=== PATIENT | female | born 1945 | race Caucasian/White ===

== ENCOUNTER → 2016-04-09 | Outpatient (CLI) | payer MEDICARE ==
[~2016-04-09] MED LIST: ALEN70TA2 PO; CALC-416 PO; CEPH500C2 PO; DPH/ PO; EZET10TA38 PO; PRLSRP PO; SITA50TA9 PO; SYN100 PO; VTMD1000 PO
[2016-04-09 09:56] LABS: ALB/GLOB RATIO 1.1 (0.9-2); ALT/SGPT 24 U/L (12-78); AST/SGOT 13 U/L (15-37); BLOOD UREA NITROGEN 14 mg/dl (7-18); BUN/CREATININE RATIO 17.3 (10-20); CALCIUM 9.6 mg/dl (8.5-10.1); CARBON DIOXIDE 29 mmol/L (21-32); CHLORIDE 103 mmol/L (98-107); CHOLESTEROL 158 mg/dl (0-200); CREATININE 0.83 mg/dl (0.60-1.20); GLUCOSE 115 mg/dl (70-99); POTASSIUM 4.3 mmol/L (3.5-5.1); SODIUM 142 mmol/L (136-145); TRIGLYCERIDES 157 mg/dl (0-150); VERY LOW DENSITY LIPOPROT CALC 31 mg/dl
[2016-04-09 09:58] LABS: ALKALINE PHOSPHATASE 83 U/L (45-117); CHOLESTEROL/HDL RATIO 2.7; HDL CHOLESTEROL 59 mg/dl; LDL CHOLESTEROL CALCULATED 68 mg/dl
[2016-04-09 10:20] LABS: ESTIMATED AVERAGE GLUCOSE 143 mg/dl; HA1C FLAG Normal (Normal)
== END | disposition home or self-care (01) ==
LOC: C.LAB1850 08:24
PROVIDERS: ATTEND Family Medicine
DX: M81.0 Age-related osteoporosis without current pathological fracture (principal); E11.9 Type 2 diabetes mellitus without complications; I10 Essential (primary) hypertension; E78.5 Hyperlipidemia, unspecified; E03.9 Hypothyroidism, unspecified

== ENCOUNTER → 2016-10-18 | Outpatient (CLI) | payer MEDICARE ==
--- NOTE | 2016-10-18 12:05 | DIAGNOSTIC IMAGING REPORT ---
ABDOMEN 2VIEW W/PA CHEST RTN CLINICAL HISTORY: 71 years-old Female presenting with diffuse abdominal pain. TECHNIQUE: PA view of the chest and supine and upright views of the abdomen were obtained. COMPARISON: None. FINDINGS: Cardiomediastinal silhouette normal. Elevation of the right hemidiaphragm. Lungs and pleural spaces clear. No calcifications project over the kidneys or along the courses of the ureters. Possibility of bowel gas, nonspecific gas noted in the rectum.. No evidence of free intraperitoneal gas, pneumatosis, or portal venous gas. Osseous structures normal. IMPRESSION: 1. No acute cardiopulmonary disease. 2. Possibly of bowel gas, nonspecific. No pneumoperitoneum. Electronically signed by: Simone Vu M.D. 10/18/2016 12:04 PM Dictated Date/Time: 10/18/2016 12:02 PM
[2016-10-18 12:34] LABS: BASO % 0.3 %; BASO ABS # 0.02 K/uL (0-0.2); COMPLETE YES; EOS % 0.4 %; HEMATOCRIT 43.3 % (37-47); IG% 0.3 %; LYMPH % 18.6 %; LYMPH ABS # 1.34 K/uL (1.2-3.4); MEAN CELL VOLUME 88.2 fL (80-100); MEAN CORPUSCULAR HEMOGLOBIN 28.7 pg (25-34); MEAN CORPUSCULAR HGB CONC 32.6 g/dl (32-36); MEAN PLATELET VOLUME 9.7 fL (7.4-10.4); MONO % 14.3 %; NEUT % 66.1 %; PLATELET COUNT 334 K/uL (130-400); RED BLOOD COUNT 4.91 M/uL (4.2-5.4); WHITE BLOOD COUNT 7.19 K/uL (4.8-10.8)
[2016-10-18 12:39] LABS: ESTIMATED AVERAGE GLUCOSE 146 mg/dl; HA1C FLAG Normal (Normal)
[2016-10-18 13:01] LABS: AST/SGOT 18 U/L (15-37); BLOOD UREA NITROGEN 11 mg/dl (7-18); BUN/CREATININE RATIO 14.4 (10-20); CALCIUM 9.7 mg/dl (8.5-10.1); CARBON DIOXIDE 25 mmol/L (21-32); CHLORIDE 101 mmol/L (98-107); CREATININE 0.77 mg/dl (0.60-1.20); GLUCOSE 97 mg/dl (70-99); POTASSIUM 3.4 mmol/L (3.5-5.1); SODIUM 135 mmol/L (136-145)
[2016-10-18 13:12] LABS: ALB/GLOB RATIO 0.8 (0.9-2); ALKALINE PHOSPHATASE 92 U/L (45-117); ALT/SGPT 26 U/L (12-78); C-REACTIVE PROTEIN 2.41 mg/dl (0-0.29)
[2016-10-18 14:39] LABS: URINE APPEARANCE CLEAR (CLEAR); URINE BILIRUBIN NEG (NEG); URINE COLOR YELLOW; URINE EPITHELIAL CELL AUTO >30 /lpf (0-5); URINE NITRITE NEG (NEG); URINE SPECIFIC GRAVITY 1.013 (1.000-1.030); UROBILINOGEN NEG (NEG); ZZUR CULT IF INDIC CLEAN CATCH YES
[2016-10-18 14:41] LABS: MANUAL MICROSCOPIC REQUIRED? NO; REVIEW REQ? YES
== END | disposition home or self-care (01) ==
LOC: C.RAD1850 11:11
PROVIDERS: ATTEND Nurse Practitioner Adult Health
DX: R10.84 Generalized abdominal pain (principal); R19.7 Diarrhea, unspecified; E03.9 Hypothyroidism, unspecified; E11.9 Type 2 diabetes mellitus without complications

== ENCOUNTER 2016-10-19 11:50 | Emergency (ER) | payer MEDICARE ==
[~2016-10-19] VITALS: Ht 165.1 cm; Wt 73.2 kg
[2016-10-19 12:14] VITALS: TEMP 36.4; Ht 165.1 cm; Wt 73.2 kg
[2016-10-19] MEDS ORDERED: ONDANSETRON INJ 2 MG/ML 2 ML VIAL IV STA (12:26)
[2016-10-19] MEDS ORDERED: SODIUM CHLORIDE 0.9% 1000ML 1,000 ML IV STA (12:26)
--- NOTE | 2016-10-19 12:30 | EMERGENCY ROOM VISIT NOTE ---
History Report prepared by Linda: Claire Mann Under the Supervision of: Dr. Sesar Combs D.O. First contact with patient: 12:18 Chief Complaint: ABDOMINAL PAIN Stated Complaint: STOMACH PAIN - DIARRHEA - DAY 6 Nursing Triage Summary: pt reports diarrhea for 6 days and abd cramping was given zofran yetserday at pcp office also reports having fevers during this time History of Present Illness The patient is a 71 year old female who presents to the Emergency Room with complaints of persistent abdominal pain for the past 6 days. She rates her discomfort as a 9/10 and describes the pain as feeling like "cramping". For the past 3 days, the patient has also experienced diarrhea. She denies any melena or hematochezia. She denies any recent travel or sick contacts. She admits to nausea but has not vomited. She has experienced the chills and diaphoresis but is not sure if she's been running a fever. Yesterday the patient saw TYRESE Javier, and was given Zofran, and told to come to the ED if her symptoms worsened. She was able to produce a stool sample and turned it into the [facility] lab earlier this morning. The patient has never experienced these types of symptoms before. She has never undergone a colonoscopy. She denies any recent medication changes. Source of History: patient Onset: 6 days COUNTER WEIGHER Position: abdomen Symptom Intensity: 9/10 Quality: cramping Timing: other (persistent) Associated Symptoms: + chills, + diaphoresis, + nausea, + diarrhea, No fevers, No vomiting, No melena, No hematochezia Review of Systems See HPI for pertinent positives & negatives. A total of 10 systems reviewed and were otherwise negative. Past Medical & Surgical Medical Problems: (1) Diabetes mellitus (2) Hyperlipidemia (3) Hypertension Surgical Problems: (1) History of hysterectomy Social History Smoking Status: Never Smoker Alcohol Use: none Drug Use: none Marital Status: Housing Status: lives with family Occupation Status: retired Current/Historical Medications Scheduled Alendronate Sodium (Fosamax), 70 MG PO WK Calcium Carbonate-Vitamin D (Calcium 600+D3), 2 TABS PO DAILY Cephalexin Monohydrate (Keflex), 500 MG PO QID Cholecalciferol (Vitamin D3), 3,000 UNITS PO DAILY Diphenoxylate W/ Atropine (Lomotil), 2 TAB PO QID Ezetimibe/Simvastatin (Vytorin 10MG/20MG), 1 TAB PO DAILY Levothyroxine Sodium (Synthroid), 100 MCG PO DAILY Omeprazole (Prilosec), 10 MG PO DAILY Sitagliptin-Metformin Hcl (Janumet), 1 TAB PO BID Allergies Coded Allergies: No Known Allergies (Unverified , 10/19/16) Physical Exam Vital Signs Date Time Temp Pulse Resp B/P (MAP) Pulse Ox O2 Delivery O2 Flow Rate FiO2 10/19/16 16:55 75 20 133/65 98 10/19/16 15:20 72 20 138/74 97 Room Air 10/19/16 13:38 75 18 125/56 10/19/16 12:44 88 10/19/16 12:14 36.4 93 18 121/76 99 Room Air Physical Exam GENERAL: Patient is awake, alert, in no acute distress, patient is resting comfortably and showing no signs of anxiety EYES: The conjunctivae are clear. The pupils are round and reactive. EARS, NOSE, MOUTH AND THROAT: The nose is without any evidence of any deformity. Mucous membranes are moist tongue is midline NECK: The neck is nontender and supple. RESPIRATORY: Normal respiratory effort is noted there is no evidence of wheezing rhonchi or rales CARDIOVASCULAR: Regular rate and rhythm noted there no murmurs rubs or gallops normal S1 normal S2 GASTROINTESTINAL: The abdomen is soft. Bowel sounds are present in all quadrants. Abdomen is nontender MUSCULOSKELETAL/EXTREMITIES: There is no evidence of gross deformity full range of motion is noted in the hips and shoulders SKIN: There is no obvious evidence of any rash. There are no petechiae, pallor or cyanosis noted. NEUROLOGIC: Patient is awake alert and oriented x3 strength is symmetric patellar reflexes are 2+ bilaterally Medical Decision & Procedures ER Provider Diagnostic Interpretation: Radiology results as stated below per my review and radiologist interpretation: ABDOMEN 2VIEW W/PA CHEST RTN CLINICAL HISTORY: Abdominal pain and diarrhea COMPARISON STUDY: 10/18/2016 FINDINGS: The erect chest reveals no free air. There is calcification within the mitral valve annulus. There is no focal pulmonary consolidation. Erect and supine views the abdomen reveal scattered air-fluid levels. There are no transition zones indicate bowel obstruction. There is no significant bowel dilatation. IMPRESSION: No evidence of bowel obstruction. No evidence of free air. Electronically signed by: Ollie Marquez M.D. 10/19/2016 3:08 PM Laboratory Results 10/19/16 12:40 Red Blood Count 4.68, Mean Corpuscular Volume 87.8, Mean Corpuscular Hemoglobin 30.1, Mean Corpuscular Hemoglobin Concent 34.3, Mean Platelet Volume 9.3, Neutrophils (%) (Auto) 73.2, Lymphocytes (%) (Auto) 16.4, Monocytes (%) (Auto) 9.6, Eosinophils (%) (Auto) 0.3, Basophils (%) (Auto) 0.2, Neutrophils # (Auto) 6.58, Lymphocytes # (Auto) 1.48, Monocytes # (Auto) 0.86, Eosinophils # (Auto) 0.03, Basophils # (Auto) 0.02 10/19/16 12:40 Test 10/19/16 12:40 White Blood Count 9.00 K/uL (4.8-10.8) Red Blood Count 4.68 M/uL (4.2-5.4) Hemoglobin 14.1 g/dL (12.0-16.0) Hematocrit 41.1 % (37-47) Mean Corpuscular Volume 87.8 fL (80-100) Mean Corpuscular Hemoglobin 30.1 pg (25-34) Mean Corpuscular Hemoglobin Concent 34.3 g/dl (32-36) Platelet Count 341 K/uL (130-400) Mean Platelet Volume 9.3 fL (7.4-10.4) Neutrophils (%) (Auto) 73.2 % Lymphocytes (%) (Auto) 16.4 % Monocytes (%) (Auto) 9.6 % Eosinophils (%) (Auto) 0.3 % Basophils (%) (Auto) 0.2 % Neutrophils # (Auto) 6.58 K/uL (1.4-6.5) Lymphocytes # (Auto) 1.48 K/uL (1.2-3.4) Monocytes # (Auto) 0.86 K/uL (0.11-0.59) Eosinophils # (Auto) 0.03 K/uL (0-0.5) Basophils # (Auto) 0.02 K/uL (0-0.2) RDW Standard Deviation 44.2 fL (36.4-46.3) RDW Coefficient of Variation 13.8 % (11.5-14.5) Immature Granulocyte % (Auto) 0.3 % Immature Granulocyte # (Auto) 0.03 K/uL (0.00-0.02) Urine Color DK YELLOW Urine Appearance TURBID (CLEAR) Urine pH 5.0 (4.5-7.5) Urine Specific [place] 1.025 (1.000-1.030) Urine Protein 2+ (NEG) Urine Glucose (UA) NEG (NEG) Urine Ketones 1+ (NEG) Urine Occult Blood TRACE (NEG) Urine Nitrite NEG (NEG) Urine Bilirubin 1+ (NEG) Urine Urobilinogen NEG (NEG) Urine Leukocyte Esterase LARGE (NEG) Urine WBC (Auto) >30 /hpf (0-5) Urine RBC (Auto) 0-4 /hpf (0-4) Urine Hyaline Casts (Auto) 1-5 /lpf (0-5) Urine Epithelial Cells (Auto) >30 /lpf (0-5) Urine Bacteria (Auto) NEG (NEG) Urine Crystals (NONE PRSENT) Urine Pathogenic Casts /lpf (0) Urine Mucus PRESENT (NONE PRSENT) Urine Yeast (Auto) (NONE PRSENT) Anion Gap 11.0 mmol/L (3-11) Est Creatinine Clear Calc Drug Dose 35.9 ml/min Estimated GFR () 43.1 Estimated GFR (Non- 37.2 BUN/Creatinine Ratio 13.1 (10-20) Calcium Level 9.3 mg/dl (8.5-10.1) Magnesium Level 1.3 mg/dl (1.8-2.4) Total Bilirubin 0.4 mg/dl (0.2-1) Direct Bilirubin 0.1 mg/dl (0-0.2) Aspartate Amino Transf (AST/SGOT) 19 U/L (15-37) Alanine Aminotransferase (ALT/SGPT) 29 U/L (12-78) Alkaline Phosphatase 100 U/L (45-117) Total Protein 8.3 gm/dl (6.4-8.2) Albumin 3.8 gm/dl (3.4-5.0) Lipase 143 U/L (73-393) Laboratory results per my review. Medications Administered Medications (Trade) Dose Ordered Sig/Fredy Route Start Time Stop Time Status Last Admin Dose Admin Sodium Chloride 1,000 ml @ 999 mls/hr Q1H1M STAT IV 10/19/16 12:26 10/19/16 13:26 DC 10/19/16 12:34 999 MLS/HR Ondansetron HCl (Zofran Inj) 4 mg NOW STAT IV 10/19/16 12:26 10/19/16 12:28 DC 10/19/16 12:34 4 MG Magnesium Sulfate (Magnesium Sulfate) 1 gm NOW STAT IV 10/19/16 13:41 10/19/16 13:42 DC 10/19/16 14:12 1 GM Ceftriaxone Sodium (Rocephin Inj) 1 gm NOW STAT IV 10/19/16 13:41 10/19/16 13:42 DC 10/19/16 15:20 1 GM ED Course 1223: The patient was evaluated in room B12. A complete history and physical examination were performed. 1226: Zofran 4 mg IV, NSS 1000 ml @ 999 mls/hr IV. 1341: Rocephin 1 gm IV, Magnesium Sulfate 1 gm IV. 1342: I reevaluated the patient. She is resting comfortably. I updated her on her results so far. 1620: I reevaluated the patient. She is feeling much better and feels ready to go home. I discussed her results and discharge instructions and she verbalized complete understanding and agreement. Medical Decision Prior records/ancillary studies reviewed. Triage Nursing notes reviewed. The patient's history was concerning for nausea, vomiting, diarrhea, and abdominal pain. Differential diagnosis: Etiologies such as gastroenteritis, food borne illness, infections, appendicitis , diverticulitis, inflammatory bowel disease, obstruction, GI bleed, biliary pathology, as well as others were entertained. The patient is a 71-year-old female who presented to the emergency department for an evaluation of 6 days of loose bowel movements. The patient was seen by her primary care physician and laboratory studies were obtained and she was told to go to the emergency department if the symptoms did not resolve. The patient did not have a physical exam consistent with an acute surgical abdomen. She was treated with IV fluids. She was also given IV antibiotics and IV magnesium replacement. I discussed the patient's laboratory and radiographic studies with her. I also reviewed the patient's stool studies and her C. difficile tox was negative. The patient was offered evaluation by the hospitalist for possible inpatient management especially given her magnesium level and her dehydration but she was feeling much better and felt that she could be managed as an outpatient. She was encouraged to call her primary care physician to schedule a follow-up appointment. She was also encouraged to discuss the possibility that she may require further studies or possibly a referral to a java developer to further evaluate the cause of her symptoms. She was also encouraged to return the emergency Department immediately if symptoms change worsen or the need arises. Medication Reconcilliation Current Medication List: was personally reviewed by me Blood Pressure Screening Patient's blood pressure: Normal blood pressure Blood pressure disposition: Did not require urgent referral Impression Primary Impression: Diarrhea Additional Impressions: Dehydration SOY (acute kidney injury) Hypomagnesemia UTI (urinary tract infection) Scribe Attestation The scribe's documentation has been prepared under my direction and personally reviewed by me in its entirety. I confirm that the note above accurately reflects all work, treatment, procedures, and medical decision making performed by me. Departure Information Dispostion Home / Self-Care Prescriptions Diphenoxylate W/ Atropine (LOMOTIL) 1 Tab Tab 2 TAB PO QID for Diarrhea, #25 TAB Prov: Sesar Combs, DO 10/19/16 Cephalexin Monohydrate (KEFLEX) 500 Mg Cap 500 MG PO QID, #28 CAP Prov: Sesar Combs, DO 10/19/16 Referrals Yanelis Ho MD (PCP) Patient Instructions Diarrhea, My [facility], Urinary Tract Infecs Women Additional Instructions Call your family doctor in the morning to schedule a follow-up appointment. Drink plenty clear liquids. You may require a referral to a java developer if symptoms do not improve. Return to the emergency department if symptoms change worsen or if the need arises. Problem Qualifiers Primary Impression: Diarrhea Diarrhea type: unspecified type Qualified Codes: R19.7 - Diarrhea, unspecified Additional Impressions: UTI (urinary tract infection) Urinary tract infection type: acute cystitis Hematuria presence: without hematuria Qualified Codes: N30.00 - Acute cystitis without hematuria
[2016-10-19 12:54] LABS: BASO % 0.2 %; BASO ABS # 0.02 K/uL (0-0.2); COMPLETE YES; EOS % 0.3 %; HEMATOCRIT 41.1 % (37-47); IG% 0.3 %; LYMPH % 16.4 %; LYMPH ABS # 1.48 K/uL (1.2-3.4); MEAN CELL VOLUME 87.8 fL (80-100); MEAN CORPUSCULAR HEMOGLOBIN 30.1 pg (25-34); MEAN CORPUSCULAR HGB CONC 34.3 g/dl (32-36); MEAN PLATELET VOLUME 9.3 fL (7.4-10.4); MONO % 9.6 %; NEUT % 73.2 %; PLATELET COUNT 341 K/uL (130-400); RED BLOOD COUNT 4.68 M/uL (4.2-5.4)
[2016-10-19 12:59] LABS: URINE APPEARANCE TURBID (CLEAR); URINE COLOR DK YELLOW; URINE EPITHELIAL CELL AUTO >30 /lpf (0-5); URINE NITRITE NEG (NEG); URINE SPECIFIC GRAVITY 1.025 (1.000-1.030); UROBILINOGEN NEG (NEG)
[2016-10-19] MEDS ORDERED: CALC-416 PO (13:11)
[2016-10-19] MEDS ORDERED: SYN100 PO (13:11)
[2016-10-19] MEDS ORDERED: SITA50TA9 PO (13:11)
[2016-10-19] MEDS ORDERED: EZET10TA38 PO (13:11)
[2016-10-19] MEDS ORDERED: VTMD1000 PO (13:11)
[2016-10-19] MEDS ORDERED: PRLSRP PO (13:11)
[2016-10-19] MEDS ORDERED: ALEN70TA2 PO (13:11)
[2016-10-19 13:16] LABS: URINE BILIRUBIN 1+ (NEG)
[2016-10-19 13:17] LABS: MANUAL MICROSCOPIC REQUIRED? NO; REVIEW REQ? YES
[2016-10-19 13:21] LABS: BUN/CREATININE RATIO 13.1 (10-20); CALCIUM 9.3 mg/dl (8.5-10.1); CREATININE 1.4 mg/dl (0.60-1.20); MAGNESIUM 1.3 mg/dl (1.8-2.4); POTASSIUM 3.3 mmol/L (3.5-5.1)
[2016-10-19 13:24] LABS: URINE MUCUS PRESENT (NONE PRSENT)
[2016-10-19] MEDS ORDERED: MAGNESIUM SULFATE 1GM / D5W 1 GM BAG IV STA (13:41)
[2016-10-19] MEDS ORDERED: CEFTRIAXONE SOD INJ 1 GM ADDVIAL IV STA (13:41)
--- NOTE | 2016-10-19 15:10 | DIAGNOSTIC IMAGING REPORT ---
ABDOMEN 2VIEW W/PA CHEST RTN CLINICAL HISTORY: Abdominal pain and diarrhea COMPARISON STUDY: 10/18/2016 FINDINGS: The erect chest reveals no free air. There is calcification within the mitral valve annulus. There is no focal pulmonary consolidation. Erect and supine views the abdomen reveal scattered air-fluid levels. There are no transition zones indicate bowel obstruction. There is no significant bowel dilatation. IMPRESSION: No evidence of bowel obstruction. No evidence of free air. Electronically signed by: Ollie Marquez M.D. 10/19/2016 3:08 PM Dictated Date/Time: 10/19/2016 3:07 PM
[2016-10-19] MEDS ORDERED: CEPH500C2 PO (16:28)
[2016-10-19] MEDS ORDERED: DPH/ PO (16:28)
[2016-10-19 16:55] VITALS: BP 133/65; PULSE 75; O2SAT 98
== END 2016-10-19 16:56 | disposition home or self-care (01) ==
LOC: C.EDB 11:51
DX: R19.7 Diarrhea, unspecified (principal); E86.0 Dehydration; N17.9 Acute kidney failure, unspecified; E83.42 Hypomagnesemia; N30.00 Acute cystitis without hematuria; E11.9 Type 2 diabetes mellitus without complications; E78.5 Hyperlipidemia, unspecified; I10 Essential (primary) hypertension; Z79.899 Other long term (current) drug therapy

== ENCOUNTER → 2016-10-19 | Outpatient (CLI) | payer MEDICARE ==
[2016-10-25 14:12] LABS: O&P SOURCE OTHER-STOOL
== END | disposition home or self-care (01) ==
LOC: C.LAB1850 11:33
PROVIDERS: ATTEND Nurse Practitioner Adult Health
DX: R19.7 Diarrhea, unspecified (principal)

== ENCOUNTER → 2016-12-13 | Outpatient (CLI) | payer MEDICARE ==
[~2016-12-13] MED LIST changes: -DPH/ PO
--- NOTE | 2016-12-14 07:40 | MAMMOGRAPHY REPORT ---
BILATERAL DIGITAL SCREENING MAMMOGRAM WITH CAD: 12/13/2016 CLINICAL HISTORY: Routine screening. TECHNIQUE: Bilateral CC, MLO and repeat left MLO views due to motion were obtained. Current study wa s also evaluated with a Computer Aided Detection (CAD) system. COMPARISON: Comparison is made to exams dated: 12/10/2015 mammogram, 05/28/2014 mammogram, 05/23/2013 m ammogram, 05/17/2012 mammogram, 05/14/2011 mammogram, and 05/12/2010 mammogram - [facility]. BREAST COMPOSITION: The tissue of both breasts is almost entirely fatty. FINDINGS: No suspicious mass, architectural distortion or cluster of microcalcifications is seen. IMPRESSION: ACR BI-RADS CATEGORY 1: NEGATIVE There is no mammographic evidence of malignancy. A 1 year screening mammogram is recommended. The pa tient will receive written notification of the results. Approximately 10% of breast cancers are not detected with mammography. A negative mammographic report should not delay biopsy if a clinically suggestive mass is present. Tanya Go M.D. ay/:12/13/2016 15:24:41 Mushroom Grower: Venus Mayers RT(R)(M), [facility] letter sent: Normal 1/2 BI-RADS Code: ACR BI-RADS Category 1: Negative
== END | disposition home or self-care (01) ==
LOC: C.MAMM 14:25
PROVIDERS: ATTEND Family Medicine
DX: Z12.31 Encounter for screening mammogram for malignant neoplasm of breast (principal); M81.0 Age-related osteoporosis without current pathological fracture; M85.851 Other specified disorders of bone density and structure, right thigh; M85.852 Other specified disorders of bone density and structure, left thigh

== ENCOUNTER → 2017-04-12 | Outpatient (CLI) | payer MEDICARE ==
[2017-04-12 09:41] LABS: HEMOGLOBIN A1C 6.8 % (4.5-5.6)
[2017-04-12 09:46] LABS: ALT/SGPT 24 U/L (12-78); BLOOD UREA NITROGEN 15 mg/dl (7-18); CALCIUM 9.4 mg/dl (8.5-10.1); CARBON DIOXIDE 29 mmol/L (21-32); CHOLESTEROL 173 mg/dl (0-200); CREATININE 0.86 mg/dl (0.60-1.20); GLUCOSE 110 mg/dl (70-99); POTASSIUM 4.3 mmol/L (3.5-5.1); SODIUM 138 mmol/L (136-145)
[2017-04-12 09:57] LABS: LDL CHOLESTEROL CALCULATED 79 mg/dl
== END | disposition home or self-care (01) ==
LOC: C.LAB1850 08:06
PROVIDERS: ATTEND Family Medicine
DX: E11.9 Type 2 diabetes mellitus without complications (principal); E03.9 Hypothyroidism, unspecified; E78.5 Hyperlipidemia, unspecified; R79.82 Elevated C-reactive protein (CRP)

== ENCOUNTER → 2017-10-12 | Outpatient (CLI) | payer MEDICARE ==
[~2017-10-12] MED LIST changes: -CEPH500C2 PO
[2017-10-12 09:57] LABS: ALT/SGPT 21 U/L (12-78); BLOOD UREA NITROGEN 17 mg/dl (7-18); CALCIUM 9.4 mg/dl (8.5-10.1); CARBON DIOXIDE 30 mmol/L (21-32); CHOLESTEROL 160 mg/dl (0-200); GLUCOSE 103 mg/dl (70-99); LDL CHOLESTEROL CALCULATED 75 mg/dl; POTASSIUM 4.7 mmol/L (3.5-5.1); SODIUM 140 mmol/L (136-145)
[2017-10-12 09:58] LABS: HEMOGLOBIN A1C 6.6 % (4.5-5.6)
== END | disposition home or self-care (01) ==
LOC: C.LAB1850 07:32
PROVIDERS: ATTEND Family Medicine
DX: E11.9 Type 2 diabetes mellitus without complications (principal); E03.9 Hypothyroidism, unspecified

== ENCOUNTER 2018-10-09 03:18 | Inpatient (IN) ==
[2018-10-09] MEDS ORDERED: NITROGLYCERIN 60 SPRAYS/4.9 GM SPRAY ONE (03:20)
[2018-10-09] MEDS ORDERED: ASPIRIN CHEW 324 MG ONE (03:20)
[2018-10-09] MEDS ORDERED: NITROGLYCERIN 2% OINTMENT 30GM TUBE EXT ONE (03:32)
[2018-10-09 03:41] LABS: Basophils # (auto) 0.03 K/uL (0-0.2); Basophils % (auto) 0.2 %; Eosinophils % (auto) 0.8 %; Hematocrit (blood only) 43.1 % (37-47); Hemoglobin 14.6 g/dL (12.0-16.0); Immature Granulocytes # (auto) 0.04 K/uL (0.00-0.02); Immature Granulocytes % (auto) 0.3 %; Lymphocytes # (auto) 1.85 K/uL (1.2-3.4); Lymphocytes % (auto) 13.9 %; Mean Corpuscular Hgb Conc 33.9 g/dL (32-36); Mean Corpuscular Volume 89.4 fL (80-100); Mean Platelet Volume 10.7 fL (7.4-10.4); Monocytes # (auto) 0.76 K/uL (0.11-0.59); Monocytes % (auto) 5.7 %; Neutrophils # (auto) 10.49 K/uL (1.4-6.5); Neutrophils % (auto) 79.1 %; Platelet Count 289 K/uL (130-400); RDW Coefficient of Variation 13.7 % (11.5-14.5); RDW Standard Deviation 45.5 fL (36.4-46.3); Red Blood Count 4.82 M/uL (4.2-5.4); White Blood Count 13.27 K/uL (4.8-10.8)
[2018-10-09] MEDS ORDERED: fentaNYL citrate 100 MCG/2 ML VIAL IV STA (03:43)
[2018-10-09 04:29] LABS: Alanine Aminotransferase 22 U/L (12-78); Albumin Level 4.1 gm/dl (3.4-5.0); BUN Creatinine Ratio 21.9 (10-20); Blood Urea Nitrogen 17 mg/dl (7-18); Calcium 8.9 mg/dl (8.5-10.1); Carbon Dioxide 25 mmol/L (21-32); Chloride 103 mmol/L (98-107); Creatinine Clr Calc Pharmacy 64.1 ml/min; Est GFR (African American) 86.2; Est GFR (Non-African American) 74.4; Glucose 134 mg/dl (70-99); Sodium 138 mmol/L (136-145)
[2018-10-09 04:31] LABS: Albumin Globulin Ratio 1.2 (0.9-2); Alkaline Phosphatase 112 U/L (45-117); Bilirubin,Total 0.4 mg/dl (0.2-1); Globulin 3.3 gm/dl (2.5-4.0); NT Pro B Type Natriuretic Pept 133 pg/ml (0-900); Total Protein 7.4 gm/dl (6.4-8.2); Troponin I < 0.015 ng/ml (0-0.045)
--- NOTE | 2018-10-09 04:31 | Emergency Department Note ---
Entered by Leesa Wynn acting as a scribe for History of Present Illness General Chief complaint: Chest Pain Time Seen by Provider: 10/09/18 03:22 Source: patient Mode of arrival: EMS Limitations: no limitations History of Present Illness Provider complaint: Chest pain Onset (ago): hour(s) (around 1929 last night) Location: chest Radiation: non-radiation Pain Consistency: + other (worsening) Quality: + other (pain, pressure) Relieved By: + none Associated symptoms: + nausea/vomiting, + shortness of breath and + other (Additional symptoms: dizziness/lightheadedness, fatigue, chronic back pain. D enies: abdominal pain, leg swelling); no cough and no fever/chills The patient is a 73 year old female with a history of diabetes, hypertension, hyperlipidemia, and GERD who presents to the Emergency Room with complaints of worsening chest pain starting around 1929 last night. The patient reports that her pain is located under her right breast and in the center of her chest and does not radiate. She describes her pain as a pressure, and notes that it feels as if "someone is sitting on her chest." She states that she was unable to sleep secondary to her pain. The patient reports that she initially thought her symptoms were related to GERD, but she notes that Omeprazole and Tums did not alleviate them. She also complains of some shortness of breath, nausea, 1 episode of vomiting, slight dizziness/lightheadedness, fatigue, and chronic back pain. States she has noted recently that she get more tire more quickly with activity. She denies any abdominal pain, cough, fevers, chills, and leg swelling. She adds that she has not had any recent medication changes, concerning blood sugar levels, and dietary changes, including consumption of highly acidic foods. The patient reports that she has a family history of heart issues: her mother from heart failure and her sister had a valve replaced. She states that she has never personally had a stress test or echocardiogram performed given this family history. Home Medications Home Medications Medication Instructions Recorded Confirmed Type levothyroxine 100 mcg tablet 100 mcg PO DAILY #90 tab 09/28/18 10/09/18 History lisinopril 5 mg tablet 5 mg PO DAILY #90 tab 09/28/18 10/09/18 History omeprazole 10 mg capsule,delayed 10 mg PO DAILY #90 cap 09/28/18 10/09/18 History release calcium carbonate-vitamin D3 2 cap PO DAILY 10/09/18 10/09/18 History [Calcium 600 + D(3)] cholecalciferol (vitamin D3) 3,000 unit PO DAILY 10/09/18 10/09/18 History [Vitamin D3] ezetimibe-simvastatin [Vytorin 1 tab PO DAILY 10/09/18 10/09/18 History 10-20] sitagliptin-metformin [Janumet XR] 1 tab PO BID 10/09/18 10/09/18 History Allergies Allergy/AdvReac Type Severity Reaction Status Date / Time metformin Allergy Verified 09/28/18 12:29 Past Med/Surg History Medical History GERD (gastroesophageal reflux disease) Hypertension Hyperlipidemia Diabetes mellitus H/O: hysterectomy Family History Mother Diabetes Heart failure Cardiomyopathy Grandmother Diabetes Sister Osteoporosis Breast cancer Cardiac disorder Aunt Myocardial infarction Uncle Myocardial infarction Social History Preferred Language: Montserratian marital status: current occupational status: retired Feels Safe at Home: Yes Smoking Status: Never smoker Review of Systems See HPI for pertinent positives & negatives. and A total of 10 systems reviewed and were otherwise negative Physical Exam Vital Signs Vital Signs - 24 hr 10/09/18 03:30 10/09/18 03:40 10/09/18 03:46 Temperature 36.4 C L Temperature Source Oral Sepsis Recent Fever Within 48 Hours No Sepsis Action Taken by Nursing No Action Required Pulse Rate 62 70 62 Pulse Rate [Finger] Pulse Rate from SpO2 Sensor 62 62 Pulse Rhythm Regular Pulse Strength Normal Respiratory Rate 16 18 14 Respiratory Effort / Characteristics Normal for Patient Respiratory Depth Normal Respiratory Pattern Regular Blood Pressure 174/72 H 188/75 H 171/57 H Blood Pressure [Right Arm] Blood Pressure Mean 106 112 95 Blood Pressure Mean [Right Arm] Pulse Oximetry 97 97 98 Oxygen Delivery Method Room Air 10/09/18 04:00 10/09/18 04:09 10/09/18 05:34 Temperature Temperature Source Sepsis Recent Fever Within 48 Hours Sepsis Action Taken by Nursing Pulse Rate 63 62 Pulse Rate [Finger] 73 Pulse Rate from SpO2 Sensor 62 63 Pulse Rhythm Pulse Strength Respiratory Rate 19 20 18 Respiratory Effort / Characteristics Non-Labored Respiratory Depth Normal Respiratory Pattern Blood Pressure 161/70 H 161/78 H Blood Pressure [Right Arm] 166/78 H Blood Pressure Mean 100 105 Blood Pressure Mean [Right Arm] 107 Pulse Oximetry 93 95 96 Oxygen Delivery Method GENERAL: alert, uncomfortable appearing, well nourished, no distress, non-toxic EYE EXAM: normal conjunctiva, PERRL and EOM's grossly intact OROPHARYNX: no exudate, no erythema, lips, buccal mucosa, and tongue normal and mucous membranes are moist NECK: supple, no nuchal rigidity, no adenopathy, non-tender LUNGS: Clear to auscultation. Normal chest wall mechanics. Mild tenderness to pa lpation of the chest wall. HEART: no murmurs, S1 normal and S2 normal ABDOMEN: abdomen soft, non-tender, normo-active bowel sounds, no masses, no rebound or guarding. BACK: Back is symmetrical on inspection and there is no deformity, no midline tenderness, no CVA tenderness. SKIN: no rashes and no bruising UPPER EXTREMITIES: upper extremities are grossly normal. FROM, nml pulses b/l. LOWER EXTREMITIES: Trace pedal edema. FROM, nml pulses b/l. NEURO EXAM: Normal sensorium, cranial nerves II-XII grossly intact, normal speech, no gross weakness of arms, no gross weakness of legs. Gross sensation intact. Course 0324: The patient was evaluated in room A2, and a complete history and physical examination were performed. 0444: I checked on the patient and updated her on her results thus far. She stated that her pain is improved but still present. 0535: Patient states pain is improved, rates it at 2/10. 0554: On reevaluation, the patient is resting. I discussed the results and findings with her. She verbalized agreement of the treatment plan. I spoke with Dr. Hood of the [facility]. The patient will be e valuated for further management and care. Consultations Consultation #1: I spoke with Dr. Hood of the [facility]. The patient will be evaluated for further management and care. Time: 05:54 Administered Medications Ioversol (Optiray 320 125ml) 125 ml IV ONCE PRN PRN Reason: Interaction Checking Stop: 10/13/18 05:33 Last Admin: 10/09/18 05:34 Dose: 88 ml Documented by: [id number] Discontinued Medications Famotidine (Pepcid 20mg Iv Push) 20 mg IV ONE STA Stop: 10/09/18 04:59 Last Admin: 10/09/18 05:05 Dose: 20 mg Documented by: [id number] Fentanyl Citrate (Fentanyl Citrate) 50 mcg IV NOW STA Stop: 10/09/18 03:44 Last Admin: 10/09/18 03:47 Dose: 50 mcg Documented by: [id number] Morphine Sulfate (Morphine Sulfate) 4 mg IV NOW STA Stop: 10/09/18 04:59 Last Admin: 10/09/18 05:05 Dose: 4 mg Documented by: [id number] Nitroglycerin (Nitro-Bid 2%) 1 inch EXT NOW ONE Stop: 10/09/18 03:33 Last Admin: 10/09/18 03:45 Dose: 1 inch Documented by: [id number] Medical Decision Making Differential Diagnosis Differential diagnosis includes: cardiac ischemia, aortic dissection, pulmonary embolism, pneumonia, pneumothorax, musculoskeletal, infections, pericarditis, myocarditis, esophageal rupture, gastrointestinal, as well as others were entertained. Medical Records Attestation: I reviewed the patient's medical records. Home Medications Current Medication List: was personally reviewed by me Laboratory Data Attestation: I reviewed the patient's lab results. Result diagrams: 10/09/18 03:29 10/09/18 04:35 Lab Results 10/09/18 10/09/18 10/09/18 Range/Units 03:29 03:29 04:08 WBC 13.27 H (4.8-10.8) K/uL RBC 4.82 (4.2-5.4) M/uL Hgb 14.6 (12.0-16.0) g/dL Hct 43.1 (37-47) % MCV 89.4 (80-100) fL MCH 30.3 (25-34) pg MCHC 33.9 (32-36) g/dL RDW Std Deviation 45.5 (36.4-46.3) fL RDW Coeff of Quin 13.7 (11.5-14.5) % Plt Count 289 (130-400) K/uL MPV 10.7 H (7.4-10.4) fL Immature Gran % (Auto) 0.3 % Neut % (Auto) 79.1 % Lymph % (Auto) 13.9 % [place] % (Auto) 5.7 % Eos % (Auto) 0.8 % Baso % (Auto) 0.2 % Immature Gran # (Auto) 0.04 H (0.00-0.02) K/uL Neut # (Auto) 10.49 H (1.4-6.5) K/uL Lymph # (Auto) 1.85 (1.2-3.4) K/uL [place] # (Auto) 0.76 H (0.11-0.59) K/uL Eos # (Auto) 0.10 (0-0.5) K/uL Baso # (Auto) 0.03 (0-0.2) K/uL D-Dimer 620 H* (0-500) ug/L FEU Sodium 138 (136-145) mmol/L Potassium (3.5-5.1) mmol/L Chloride 103 (98-107) mmol/L Carbon Dioxide 25 (21-32) mmol/L Anion Gap 10.0 (3-11) BUN 17 (7-18) mg/dl Creatinine 0.78 (0.6-1.2) mg/dl Est Cr Clr Drug Dosing 64.1 ml/min Est GFR ( Amer) 86.2 Est GFR (Non-Af Amer) 74.4 BUN/Creatinine Ratio 21.9 H (10-20) Glucose 134 H (70-99) mg/dl Calcium 8.9 (8.5-10.1) mg/dl Magnesium (1.8-2.4) mg/dl Total Bilirubin 0.4 (0.2-1) mg/dl AST (15-37) U/L ALT 22 (12-78) U/L Alkaline Phosphatase 112 (45-117) U/L Troponin I < 0.015 (0-0.045) ng/ml NT-Pro-B Natriuret Pep 133 (0-900) pg/ml Total Protein 7.4 (6.4-8.2) gm/dl Albumin 4.1 (3.4-5.0) gm/dl Globulin 3.3 (2.5-4.0) gm/dl Albumin/Globulin Ratio 1.2 (0.9-2) Lipase 121 (73-393) U/L 10/09/18 Range/Units 04:35 WBC (4.8-10.8) K/uL RBC (4.2-5.4) M/uL Hgb (12.0-16.0) g/dL Hct (37-47) % MCV (80-100) fL MCH (25-34) pg MCHC (32-36) g/dL RDW Std Deviation (36.4-46.3) fL RDW Coeff of Quin (11.5-14.5) % Plt Count (130-400) K/uL MPV (7.4-10.4) fL Immature Gran % (Auto) % Neut % (Auto) % Lymph % (Auto) % [place] % (Auto) % Eos % (Auto) % Baso % (Auto) % Immature Gran # (Auto) (0.00-0.02) K/uL Neut # (Auto) (1.4-6.5) K/uL Lymph # (Auto) (1.2-3.4) K/uL [place] # (Auto) (0.11-0.59) K/uL Eos # (Auto) (0-0.5) K/uL Baso # (Auto) (0-0.2) K/uL D-Dimer (0-500) ug/L FEU Sodium (136-145) mmol/L Potassium 4.0 (3.5-5.1) mmol/L Chloride (98-107) mmol/L Carbon Dioxide (21-32) mmol/L Anion Gap (3-11) BUN (7-18) mg/dl Creatinine (0.6-1.2) mg/dl Est Cr Clr Drug Dosing ml/min Est GFR ( Amer) Est GFR (Non-Af Amer) BUN/Creatinine Ratio (10-20) Glucose (70-99) mg/dl Calcium (8.5-10.1) mg/dl Magnesium 1.7 L (1.8-2.4) mg/dl Total Bilirubin (0.2-1) mg/dl AST 13 L (15-37) U/L ALT (12-78) U/L Alkaline Phosphatase (45-117) U/L Troponin I (0-0.045) ng/ml NT-Pro-B Natriuret Pep (0-900) pg/ml Total Protein (6.4-8.2) gm/dl Albumin (3.4-5.0) gm/dl Globulin (2.5-4.0) gm/dl Albumin/Globulin Ratio (0.9-2) Lipase (73-393) U/L Imaging Data Attestation: I personally reviewed and interpreted this imaging study as follows: My Impression: Radiology results as stated below per my review and interpretation: XR CHEST 1V Findings: No cardiomegaly, no effusions, poor inspiratory effort, no wide mediastinum, no focal consolidation, no acute pulmonary edema. Radiologist's Impression: Radiology results as stated below per my review and the radiologist's interpretation: CTA CHEST: No evidence of PE or aortic dissection. Patchy bilateral atelectasis or pneumonitis. Chronic lung changes. No pneumothorax or pleural effusion. Small hiatal hernia. Query mild esophageal wall thickening. Small mediastinal and hilar lymph nodes. Distended gallbladder. Ultrasound can evaluate if indicated. Nodular thickening of the bilateral adrenal glands. Radiologist: Katherine Lake MD Study ready at 05:39 and initial results transmitted at 05:53 ECG Data Attestation: I personally reviewed and interpreted this ECG as follows: Indication: chest pain Rate (beats per minute): 69 Rhythm: normal sinus Findings: + other (normal axis, normal intervals) and + T-wave inversion (lead III); no acute ischemic change and no ectopy Additional Comments: Repeat EKG findings: normal sinus rhythm, 68 BPM, normal axis, normal intervals, no ectopy, no acute ischemic change, inverted T wave in lead III. Blood Pressure Blood Pressure Findings: Elevated blood pressure Blood Pressure Disposition: further management by hospitalist [facility] Narrative HEART score 5 Patient presenting here with concerns for chest pain with accompanying symptoms. Patient with no prior cardiac history although multiple risk factors and advanced age. Patient's labs drawn and sent which were reassuring with the exception of a mildly elevated d-dimer. Patient's chest x-ray reassuring although poor inspiratory effort. In light of patient's persistent pain and requirement of multiple IV narcotics in order to help control her pain in addition to the Nitropaste and prior sublingual nitroglycerin by EMS, patient sent for CT angiography of the chest. This was reassuring also. Patient was made aware of all results and was in agreement with plan for additional inpatient evaluation. Case discussed with the hospitalist. No evidence of dissection, PE, tamponade, pneumonia, effusion. Discussed with patient possibility of GI origin given her history of GERD, although patient states she takes omeprazole daily, has not noted any dietary changes or recent increase in heartburn-like symptoms. I do not suspect perforation or GI bleed. While patient's first troponin was negative at approximately 8 hours after the onset of her symptoms, patient still high risk with ongoing pain. I do feel patient would benefit from additional cardiac evaluation. Impression & Plan Chest pain, Hypertension, Dyspnea on exertion Discharge Plan Visit Data Chief Complaint: Chest Pain ED Provider: Shazia Marie Discharge Problem: Chest pain, Hypertension, Dyspnea on exertion Patient Disposition: Admitted As Inpatient Forms Stand Alone Forms: Call Back Authorization, My [facility] Prescriptions Prescriptions: No Action lisinopril 5 mg tablet 5 mg PO DAILY Qty: 90 RF: 0 omeprazole 10 mg capsule,delayed release(DR/EC) 10 mg PO DAILY Qty: 90 RF: 0 levothyroxine 100 mcg tablet 100 mcg PO DAILY Qty: 90 RF: 0 ezetimibe-simvastatin [Vytorin 10-20] 10-20 mg Tablet 1 tab PO DAILY RF: 0 cholecalciferol (vitamin D3) [Vitamin D3] 1,000 unit Capsule 3,000 unit PO DAILY RF: 0 Janumet XR 50-1,000 mg tablet, ER multiphase 24 hr 1 tab PO BID RF: 0 Calcium 600 + D(3) 600 mg calcium- 200 unit Capsule 2 cap PO DAILY RF: 0 Referrals Referrals: Yanelis Ho MD [Primary Care Provider] - Discharge Problem: Chest pain Qualifiers: Chest pain type: unspecified Qualified Code(s): R07.9 - Chest pain, unspecified Hypertension Qualifiers: Hypertension type: unspecified Qualified Code(s): I10 - Essential (primary) hypertension The scribe's documentation has been prepared under my direction and personally reviewed by me in its entirety. I confirm that the note above accurately refle cts all work, treatment, procedures, and medical decision making performed by me.
[2018-10-09 04:49] LABS: D Dimer 620 ug/L FEU (0-500)
[2018-10-09] MEDS ORDERED: FAMOTIDINE 20MG/5ML IV PUSH IV STA (04:58)
[2018-10-09] MEDS ORDERED: MoRPHine SULFATE 4 MG/ML 1 ML CARP\\VIAL IV STA (04:58)
[2018-10-09 05:03] LABS: Magnesium 1.7 mg/dl (1.8-2.4)
[2018-10-09] MEDS ORDERED: OPTIRAY 320 125ml IV PRN (05:34)
--- NOTE | 2018-10-09 05:40 | History & Physical Report ---
Date of Service October 09, 2018 Assessment & Plan (1) Chest pain: 73 y/o F Hx HTN, HLD, GERD, hypothyroidism, DM II. Presents with central CP which began the prior evening. The pain is pressure-like, nonradiating. She denies nausea, vomiting, diaphoresis. She has had some dyspnea when the pain occurs. Initial labs and EKG do not support acute ischemia. A CTA was obtained due to persistent pain and did not show any acute abnormalities. 1) CP - as the pain has been present for close to 12 hours and there are no EKG or lab abnormalities, this may argue against a cardiac etiology. She does have multiple risk factors including HTN, HLD and DM. We will obtain 2 additional trops. She can then undergo a stress test as an inpt or we can refer for outpt study. ASA and a B chris provided 2) HTN - cont Lisinopril and add metoprolol 3) HLD - cont Vytorin 4) DM - placed on a SS 5) GERD - cont Omeprazole Full code - Lovenox Total time for this admit including review of labs, meds, imaging, records - discussion with pt and ER attending - 33 min Present on Admission?: Yes History of Present Illness Chief Complaint: CP Primary Care Provider: Yanelis Ho MD 73 y/o F Hx HTN, HLD, GERD, hypothyroidism, DM II. Presents with central CP which began the prior evening. The pain is pressure-like, nonradiating. She denies nausea, vomiting, diaphoresis. She has had some dyspnea when the pain occurs. Initial labs and EKG do not support acute ischemia. A CTA was obtained due to persistent pain and did not show any acute abnormalities. PMH 1) HTN 2) HLD 3) DM II 4) GERD 5) Hypothyroidism Surgical: Hysterectomy Social: Does not smoke or drink Family: Father in an MVA Mother at age 89 due to an [place] Allergies Allergy/AdvReac Type Severity Reaction Status Date / Time metformin Allergy Verified 09/28/18 12:29 Home Medications Home Medications Medication Instructions Recorded Confirmed Type levothyroxine 100 mcg tablet 100 mcg PO DAILY #90 tab 09/28/18 10/09/18 History lisinopril 5 mg tablet 5 mg PO DAILY #90 tab 09/28/18 10/09/18 History omeprazole 10 mg capsule,delayed 10 mg PO DAILY #90 cap 09/28/18 10/09/18 History release calcium carbonate-vitamin D3 2 cap PO DAILY 10/09/18 10/09/18 History [Calcium 600 + D(3)] cholecalciferol (vitamin D3) 3,000 unit PO DAILY 10/09/18 10/09/18 History [Vitamin D3] ezetimibe-simvastatin [Vytorin 1 tab PO DAILY 10/09/18 10/09/18 History 10-20] sitagliptin-metformin [Janumet XR] 1 tab PO BID 10/09/18 10/09/18 History Past Med/Surg History Medical History GERD (gastroesophageal reflux disease) Hypertension Hyperlipidemia Diabetes mellitus H/O: hysterectomy Family History Mother Diabetes Heart failure Cardiomyopathy Grandmother Diabetes Sister Osteoporosis Breast cancer Cardiac disorder Aunt Myocardial infarction Uncle Myocardial infarction Social History Preferred Language: Kyrgyz marital status: current occupational status: retired Feels Safe at Home: Yes Smoking Status: Never smoker Review of Systems Review of Systems: Gen: Denies fevers, night sweats, rigors, fatigue, malaise, weight loss/gain ENT: Denies congestion, throat pain, hearing loss Eyes: Denies acute visual changes CV: Chest pain as above Pulmonary: SOB with CP GI: Denies N/V, diarrhea, constipation Neuro: Denies acute or unilateral weakness, acute gait impairment, headache or acute visual changes Musculoskeletal: Denies joint pain, inflammation Endocrine: Denies polydipsia, polyuria Skin: Denies acute rashes or ulcers Physical Exam Physical Exam: General: AAO x 3, no distress ENT: No erythema or exudates, no thrush Eyes: KOTA, EOMI Head and neck: Normocephalic, atraumatic, No JVD, neck is supple. Chest/heart: Nontender, S1,2, RRR, no murmurs, no gallops Lungs: CTAB, no wheezing or crackles Abdomen: Nontender, nondistended, BS+ Neuro: AAO x 3, speech is clear, no unilateral weakness or loss of sensation, coordination intact Musculoskeletal: No joint inflammation, muscle tenderness, FROM Skin: No acute rashes or ulcers Extremities: No clubbing, cyanosis, edema Results & Data Vital Signs (Past 12 Hours) Vital Signs Temp Pulse Resp BP Pulse Ox 10/09/18 04:09 62 20 161/78 H 95 10/09/18 04:00 63 19 161/70 H 93 10/09/18 03:46 62 14 171/57 H 98 10/09/18 03:40 97.5 F L 70 18 188/75 H 97 10/09/18 03:30 62 16 174/72 H 97 Diagnostic Findings EKG: NSR PG Care Time/CCT Total # of Minutes Spent Total Time Spent with Patient: Total time spent is greater than 50% in coordination of care (as documented) at patient's floor/unit and/or counseling patient: (1) Chest pain Chest pain type: unspecified Qualified Code(s): R07.9 - Chest pain, unspecified
[2018-10-09] MEDS ORDERED: POLYETHYLENE (MIRALAX) 17 GM PACK PO PRN (06:57)
[2018-10-09] MEDS ORDERED: ONDANSETRON INJ 2 MG/ML 2 ML VIAL IV PRN (06:57)
[2018-10-09] MEDS ORDERED: MAGNESIUM HYDROXIDE SUSP 30 ML UDC PO PRN (06:57)
[2018-10-09] MEDS ORDERED: ALUMINUM/MAGNESIUM SUSP 30 ML UDC PO PRN (06:57)
[2018-10-09] MEDS ORDERED: MoRPHine SULFATE 2 MG/ML CARP IV PRN (06:57)
[2018-10-09] MEDS ORDERED: NITROGLYCERIN SL 0.4 MG/TAB TAB SL PRN (06:57)
--- NOTE | 2018-10-09 07:02 | CT Scan Report ---
CT angio chest PE protocol CLINICAL HISTORY: 73 years-old Female presenting with chest pressure and shortness of breath, clinica l concern for pulmonary embolus. TECHNIQUE: Multidetector CT angiography of the chest was performed after administration of intravenou s contrast. 3-D volumetric and/or maximum intensity projection (MIP) images were subsequently reconst ructed for review. IV contrast: 88 mL of Optiray 320. One or more dose lowering techniques were used consistent with the principles of ALARA (as low as reasonably achievable), including automatic exposu re control, mA or kV adjustment to individual patient size, and/or use of iterative reconstruction. COMPARISON: Chest x-ray performed earlier the same day. CT DOSE (mGy.cm): The estimated cumulative dose is 332.29 mGy.cm. FINDINGS: [employer] topogram: Unremarkable. Pulmonary vasculature: The study is adequate for assessment of the pulmonary vascular tree. No filling defect within the pul monary arteries to suggest embolus. Main pulmonary artery is not enlarged. No flattening of the inter ventricular septum. No intracardiac filling defect. Reflux of contrast into the intrahepatic IVC. Remaining chest: Soft tissues: Normal thyroid and thoracic inlet. Small bilateral hilar lymph nodes, likely reactive. Atherosclerosis of the aorta. Tortuosity of the branch vessels of the aortic arch may relate to chron ic hypertension. Normal heart size. Mitral annular and aortic valve calcification. No pericardial or pleural effusion. Small hiatal hernia. This likely accounts for the appearance of apparent distal eso phageal wall thickening. Distended gallbladder, which may be on a physiologic basis. Nodularity of th e bilateral adrenal glands, nonspecific. Lungs and airways: No pneumothorax. Central airways patent. Pulmonary arteries mildly enlarged relati ve to adjacent bronchi. Mild interlobular septal thickening may be present at the lung bases. Mosaic attenuation noted diffusely. Mild bronchiectasis associated with cystic change in the right middle lo be. A lesser degree of cystic change is noted elsewhere though this may instead relate to underlying mild centrilobular emphysema. Patchy peribronchovascular groundglass opacities with a basilar predomi nance. No focal nodule. Musculoskeletal: Normal osseous structures. IMPRESSION: 1. No evidence of pulmonary embolus. 2. Mosaic attenuation and patchy peribronchovascular groundglass opacities with a basilar predominan ce is nonspecific. This may indicate small airways disease or reactive airways disease or a mild pneu monitis. Early venolymphatic congestive change could also be considered. 3. Underlying emphysema versus cystic lung disease. 4. Distended gallbladder, which may be on a physiologic basis. If there are right upper quadrant sym ptoms, consider right upper quadrant ultrasound. Electronically signed by: Simone Vu M.D. 10/09/2018 7:00 AM
[2018-10-09] MEDS ORDERED: MAGNESIUM SULFATE / D5W 1 GM/100 ML BAG IV ONE (07:15)
--- NOTE | 2018-10-09 07:28 | XRay Report ---
SINGLE VIEW CHEST CLINICAL HISTORY: Atypical chest pain. FINDINGS: An AP, portable, upright chest radiograph is compared to study dated 10/19/2016. The examina tion is degraded by portable technique and patient rotation. The heart is enlarged and there is athe rosclerotic calcification of the thoracic aorta. The pulmonary vasculature is noncongested. There are low lung lungs with bibasilar atelectasis. No airspace consolidation or large pleural effusion is id entified. No pneumothorax is seen. The skeletal structures are osteopenic. The bony thorax is grossly intact. Degenerative change is noted throughout the thoracic spine. IMPRESSION: 1. Cardiomegaly without radiographic evidence of congestive failure. 2. Low lung volumes with no acute cardiopulmonary abnormality. Electronically signed by: Kristofer Guerrero M.D. 10/09/2018 7:27 AM
[2018-10-09] MEDS ORDERED: GLUCOSE 40% GEL 15 GM TUBE PO PRN (07:30)
[2018-10-09] MEDS ORDERED: GLUCOSE 10 TABS/TUBE PO PRN (07:30)
[2018-10-09] MEDS ORDERED: DEXTROSE 50% 50 ML SYRINGE IV PRN (07:30)
[2018-10-09] MEDS ORDERED: GLUCAGON FOR INJ 1 MG VIAL IM PRN (07:30)
[2018-10-09] MEDS ORDERED: CARBOHYDRATES FOR HYPOGLYCEMIA PO PRN (07:30)
[2018-10-09 07:45] LABS: Prothrombin Time 10.3 Seconds (9.0-12.0)
[2018-10-09] MEDS: SODIUM CHLORIDE 0.9% 500 ML IV SCH ×2 (08:00→11:49)
[2018-10-09] MEDS: INSULIN ASPART 100 UNITS/ML 3 ML PEN SC SCH ×4 (08:14→21:27)
[2018-10-09] MEDS: PANTOprazole 40 MG TAB PO SCH (08:17)
[2018-10-09] MEDS: ASPIRIN 81 MG ECTAB PO SCH (08:17)
[2018-10-09] MEDS: LEVOTHYROXINE SODIUM 100 MCG TABLET PO SCH (08:17)
[2018-10-09] MEDS: LISINOPRIL 5 MG TAB PO SCH (08:17)
[2018-10-09] MEDS: CALCIUM 600MG + VIT D 400 IU TAB PO SCH (08:18)
[2018-10-09] MEDS: EZETIMIBE/SIMVASTATIN 10/20 TAB PO SCH (08:26)
[2018-10-09] MEDS: ENOXAPARIN INJ 40 MG/0.4 ML SYR SQ SCH (10:16)
[2018-10-09] MEDS: SODIUM CHLORIDE 0.9% 1000ML 1,000 ML IV SCH ×2 (11:24→23:38)
[2018-10-09] MEDS: CIPROFLOXACIN 400 MG/200 ML BAG IV SCH ×2 (11:24→23:39)
[2018-10-09] MEDS: metroNIDAZOLE 500 MG/100 ML BAG IV SCH ×2 (11:25→19:22)
[2018-10-09] MEDS ORDERED: Nursing to Pharmacy Communication ONE (11:51)
[2018-10-09] MEDS: ACETAMINOPHEN 325 MG TAB PO PRN (13:48)
--- NOTE | 2018-10-09 13:49 | Ultrasound Report ---
US abdomen limited CLINICAL HISTORY: 73 years-old Female presenting with RUQ pain, vomiting, distended GB on CTA. TECHNIQUE: Real-time grayscale and limited color Doppler ultrasound imaging of the abdomen limited to the right upper quadrant was performed. COMPARISON: None. FINDINGS: Pancreas: Visualized portions of the pancreatic head and body normal. Liver: Moderately hyperechogenic parenchyma with partial obscuration of the right hemidiaphragm, like ly indicating moderate steatosis. The liver measures 13.8 cm in maximal sagittal dimension. No sonogr aphic evidence of hepatic mass. Main portal vein patent with normal directional flow. Biliary: No intrahepatic biliary ductal dilatation. Common bile duct measures up to 4 mm in diameter. Gallbladder: Apparent gallbladder wall thickening. Possible pericholecystic parenchymal edema versus fatty sparing. The gallbladder is distended. No evidence of gallstones or gallbladder sludge. Sonogra phic Mendoza's sign negative. Right kidney: Normal in appearance without evidence of hydronephrosis. Ascites: None. Other: None. IMPRESSION: 1. Distended gallbladder with gallbladder wall thickening. Consider HIDA scan for further evaluation as this does raise concern for cholecystitis. 2. No cholelithiasis or biliary ductal dilatation. 3. Hepatic steatosis. Correlate with liver function tests to exclude steatohepatitis as a cause for abdominal pain. Electronically signed by: Simone Vu M.D. 10/09/2018 1:48 PM
--- NOTE | 2018-10-09 14:14 | History & Physical Bridge Note ---
Date of Service October 09, 2018 History & Physical Bridge Note I have examined the patient, reviewed the History & Physical and in the interval since the performance of the History & Physical I have noted the following changes of clinical significance patient seen late morning, still with nausea and vomiting and some epigastric pain. Noted that the CTA showed a distended gall bladder. Clinically her story did fit with acute cholecystitis as the symptoms were sudden onset with pain and vomiting. She did not have an appetite. No fever but her WBC was up at 13k. LFT unremarkable. RUQ US showed a distended gall bladder, no stones seen, CBD was normal. Suggested HIDA scan to confirm cholecystitis. Patient not tender in RUQ on exam so will get the HIDA to look for definitive evidence of cholecystitis. Told RN the plan, patient can have clear liquids after the HIDA if they can get it done today. If HIDA cannot be done today then can have clears now.
--- NOTE | 2018-10-09 18:31 | Nuclear Medicine Report ---
NUCLEAR MEDICINE HEPATOBILIARY SCAN HISTORY: Abnormal gallbladder on ultrasound. Right upper quadrant pain. confirm cholecystitis COMPARISON: Abdominal ultrasound 10/09/2018. TECHNIQUE: Immediately following the intravenous administration of 5 mCi Tc-99m Choletec, dynamic ant erior abdominal imaging was performed. FINDINGS: Uniform hepatic tracer accumulation is shown. Prompt intrahepatic biliary excretion is seen. The comm on bile duct and small bowel are all visualized by 15 minutes. The gallbladder is not identified on t he initial 60 minutes of imaging. Therefore, 2 mg of intravenous morphine was administered. An additi onal 30 minutes of imaging was performed. The gallbladder was not identified during the examination. IMPRESSION: Above findings consistent with cystic duct obstruction/acute cholecystitis. Electronically signed by: Terell Rand M.D. 10/09/2018 6:29 PM
[2018-10-10] MEDS: metroNIDAZOLE 500 MG/100 ML BAG IV SCH ×3 (02:34→20:06)
[2018-10-10] MEDS: LEVOTHYROXINE SODIUM 100 MCG TABLET PO SCH (05:44)
[2018-10-10] MEDS: INSULIN ASPART 100 UNITS/ML 3 ML PEN SC SCH ×4 (07:24→20:42)
[2018-10-10] MEDS: LISINOPRIL 5 MG TAB PO SCH (08:00)
[2018-10-10] MEDS: CALCIUM 600MG + VIT D 400 IU TAB PO SCH (08:00)
[2018-10-10] MEDS: ENOXAPARIN INJ 40 MG/0.4 ML SYR SQ SCH (08:03)
[2018-10-10] MEDS: ASPIRIN 81 MG ECTAB PO SCH (08:03)
[2018-10-10] MEDS: EZETIMIBE/SIMVASTATIN 10/20 TAB PO SCH (08:04)
[2018-10-10] MEDS: PANTOprazole 40 MG TAB PO SCH (08:04)
[2018-10-10 08:08] LABS: Basophils # (auto) 0.01 K/uL (0-0.2); Basophils % (auto) 0.1 %; Eosinophils # (auto) 0.09 K/uL (0-0.5); Eosinophils % (auto) 0.9 %; Hematocrit (blood only) 39.4 % (37-47); Hemoglobin 12.7 g/dL (12.0-16.0); Immature Granulocytes # (auto) 0.03 K/uL (0.00-0.02); Immature Granulocytes % (auto) 0.3 %; Lymphocytes # (auto) 1.52 K/uL (1.2-3.4); Lymphocytes % (auto) 14.4 %; Mean Corpuscular Hgb Conc 32.2 g/dL (32-36); Mean Corpuscular Volume 90.6 fL (80-100); Mean Platelet Volume 10.3 fL (7.4-10.4); Monocytes # (auto) 0.92 K/uL (0.11-0.59); Monocytes % (auto) 8.7 %; Neutrophils # (auto) 7.99 K/uL (1.4-6.5); Neutrophils % (auto) 75.6 %; Platelet Count 284 K/uL (130-400); RDW Coefficient of Variation 14.1 % (11.5-14.5); RDW Standard Deviation 47.1 fL (36.4-46.3); Red Blood Count 4.35 M/uL (4.2-5.4); White Blood Count 10.56 K/uL (4.8-10.8)
--- NOTE | 2018-10-10 08:29 | Hospitalist Progress Note ---
Date of Service October 10, 2018 Assessment & Plan (1) Acute cholecystitis: presented with chest and epigastric pain at rest associated with nausea and vomiting, low grade fever RUQ US with dilated gall bladder, normal CBD, no stones HIDA scan shows obstruction of cystic duct consistent with the acute cholecystitis NPO after midnight on 10/09 plan for lap madonna today with general surgery continue on Cipro and Flagyl IV NSS at 80cc/hr while NPO (2) Hypertension: BP slightly high at 167/75 continue on Lisinopril (3) Chest pain: initially had chest pain negative work up for cardiac ischemia CTA chest negative for PE (4) GERD (gastroesophageal reflux disease): continue on PPI (5) Diabetes mellitus: type II, normally on Janumet hold oral agents, use Novolog SS monitor for hypoglycemia Subjective patient feeling well, no RUQ pain, no vomiting no fever or chills, no chest pain reviewed results of HIDA scan, positive for cholecystitis discussed with general surgery, should have OR time this afternoon Review of Systems Review of Systems: All systems reviewed & are unremarkable except as noted in HPI & below Constitutional: no fever, no chills, no sweats, no fatigue and no weakness Respiratory: no cough and no dyspnea Cardiovascular: no chest pain, no syncope and no edema Gastrointestinal: no abdominal pain, no nausea, no vomiting, no constipation and no diarrhea/loose stools Physical Exam Constitutional: WD/WN, vitals as above Eyes: PERRL, conjunctivae normal, anicteric sclerae ENMT: external ear and nose normal, oropharynx normal Neck: trachea midline, no thyromegaly Respiratory: normal respiratory effort, lungs clear to auscultation Cardiovascular: RRR, no murmur, no edema Gastrointestinal (Abdomen): normal bowel sounds, soft, nontender, no hepatosplenomegaly Musculoskeletal: no cyanosis or clubbing, extremities motor strength 5/5 Skin: no rashes, warm and dry Neurologic: patellar DTR's 2+ bilat, sensation intact and PERRL, EOMI, accommodation nl, no face palsy, no dysarthria Psychiatric: A+Ox3, euthymic affect Lymphatic: no cervical or axillary lymphadenopathy Results & Data Vital Signs (Past 12 Hours) Vital Signs Temp Pulse Pulse Resp BP Pulse Ox 10/10/18 07:47 36.7 C 66 20 167/75 H 99 10/10/18 02:38 36.5 C 65 16 136/72 97 10/09/18 23:54 36.4 C L 62 18 157/74 H 97 10/09/18 23:04 59 L Laboratory Results Laboratory Results - last 24 hr 10/09/18 10/09/18 10/09/18 11:21 11:37 18:27 WBC RBC Hgb Hct MCV MCH MCHC RDW Std Deviation RDW Coeff of Quin Plt Count MPV Immature Gran % (Auto) Neut % (Auto) Lymph % (Auto) [place] % (Auto) Eos % (Auto) Baso % (Auto) Immature Gran # (Auto) Neut # (Auto) Lymph # (Auto) [place] # (Auto) Eos # (Auto) Baso # (Auto) Sodium Potassium Chloride Carbon Dioxide Anion Gap BUN Creatinine Est Cr Clr Drug Dosing Est GFR ( Amer) Est GFR (Non-Af Amer) BUN/Creatinine Ratio Glucose POC Glucose 120 H 116 H Calcium Total Bilirubin AST ALT Alkaline Phosphatase Troponin I < 0.015 Total Protein Albumin Globulin Albumin/Globulin Ratio 10/09/18 10/10/18 10/10/18 21:08 05:55 07:52 WBC 10.56 RBC 4.35 Hgb 12.7 Hct 39.4 MCV 90.6 MCH 29.2 MCHC 32.2 RDW Std Deviation 47.1 H RDW Coeff of Quin 14.1 Plt Count 284 MPV 10.3 Immature Gran % (Auto) 0.3 Neut % (Auto) 75.6 Lymph % (Auto) 14.4 [place] % (Auto) 8.7 Eos % (Auto) 0.9 Baso % (Auto) 0.1 Immature Gran # (Auto) 0.03 H Neut # (Auto) 7.99 H Lymph # (Auto) 1.52 [place] # (Auto) 0.92 H Eos # (Auto) 0.09 Baso # (Auto) 0.01 Sodium Potassium Chloride Carbon Dioxide Anion Gap BUN Creatinine Est Cr Clr Drug Dosing Est GFR ( Amer) Est GFR (Non-Af Amer) BUN/Creatinine Ratio Glucose POC Glucose 203 H 124 H Calcium Total Bilirubin AST ALT Alkaline Phosphatase Troponin I Total Protein Albumin Globulin Albumin/Globulin Ratio 10/10/18 07:52 WBC RBC Hgb Hct MCV MCH MCHC RDW Std Deviation RDW Coeff of Quin Plt Count MPV Immature Gran % (Auto) Neut % (Auto) Lymph % (Auto) [place] % (Auto) Eos % (Auto) Baso % (Auto) Immature Gran # (Auto) Neut # (Auto) Lymph # (Auto) [place] # (Auto) Eos # (Auto) Baso # (Auto) Sodium Pending Potassium Pending Chloride Pending Carbon Dioxide Pending Anion Gap Pending BUN Pending Creatinine Pending Est Cr Clr Drug Dosing Pending Est GFR ( Amer) Pending Est GFR (Non-Af Amer) Pending BUN/Creatinine Ratio Pending Glucose Pending POC Glucose Calcium Pending Total Bilirubin Pending AST Pending ALT Pending Alkaline Phosphatase Pending Troponin I Total Protein Pending Albumin Pending Globulin Pending Albumin/Globulin Ratio Pending Diagnostic Findings NUCLEAR MEDICINE HEPATOBILIARY SCAN HISTORY: Abnormal gallbladder on ultrasound. Right upper quadrant pain. confirm cholecystitis COMPARISON: Abdominal ultrasound 10/09/2018. TECHNIQUE: Immediately following the intravenous administration of 5 mCi Tc-99m Choletec, dynamic anterior abdominal imaging was performed. FINDINGS: Uniform hepatic tracer accumulation is shown. Prompt intrahepatic biliary excretion is seen. The common bile duct and small bowel are all visualized by 15 minutes. The gallbladder is not identified on the initial 60 minutes of imaging. Therefore, 2 mg of intravenous morphine was administered. An additional 30 minutes of imaging was performed. The gallbladder was not identified during the examination. IMPRESSION: Above findings consistent with cystic duct obstruction/acute cholecystitis. Medications Administered Current Inpatient Medications Acetaminophen (Tylenol) 650 mg PO Q4H PRN PRN Reason: Pain or Fever Stop: 11/08/18 06:56 Last Admin: 10/09/18 13:48 Dose: 650 mg Documented by: Al Hydrox/Mg Hydrox/Simethicone (Maalox) 15 ml PO Q4H PRN PRN Reason: Dyspepsia Stop: 11/08/18 06:56 Aspirin (Ecotrin Ectab) 81 mg PO QAM KOBY Stop: 11/08/18 08:59 Last Admin: 10/10/18 08:03 Dose: Not Given Documented by: Dextrose (Dextrose 50%) 25 - 50 ml IV UD PRN; Protocol PRN Reason: Hypoglycemia Protocol Stop: 11/08/18 07:29 Enoxaparin Sodium (Lovenox) 40 mg SQ Q24H [facility] Stop: 11/08/18 08:59 Last Admin: 10/10/18 08:03 Dose: Not Given Documented by: Ezetimibe/Simvastatin (Vytorin 10/20 Mg) 1 tab PO DAILY KOBY Stop: 11/08/18 08:59 Last Admin: 10/10/18 08:04 Dose: Not Given Documented by: Glucagon (Glucagen) 1 mg IM UD PRN; Protocol PRN Reason: Hypoglycemia Protocol Stop: 11/08/18 07:29 Glucose (Glucose 40%) 15 - 30 gm PO UD PRN; Protocol PRN Reason: Hypoglycemia Protocol Stop: 11/08/18 07:29 Glucose (Dex4 Glucose) 4 - 8 tabs PO UD PRN; Protocol PRN Reason: Hypoglycemia Protocol Stop: 11/08/18 07:29 Metronidazole (Flagyl) 500 mg in 100 mls @ 100 mls/hr IV Q8H KOBY Stop: 10/19/18 10:59 Last Infusion: 10/10/18 03:35 Dose: Infused Documented by: Ciprofloxacin (Cipro) 400 mg in 200 mls @ 100 mls/hr IV Q12H KOBY Stop: 10/19/18 10:59 Last Infusion: 10/10/18 01:40 Dose: Infused Documented by: Sodium Chloride (Nss 1000ml) 1,000 mls @ 80 mls/hr IV .[id number] [facility] Stop: 11/08/18 10:14 Last Admin: 10/09/18 23:38 Dose: 80 mls/hr Documented by: Insulin Aspart (Novolog Flexpen) 0 units SC ACHS KOBY Stop: 11/08/18 07:29 Last Admin: 10/10/18 07:24 Dose: Not Given Documented by: Levothyroxine Sodium (Synthroid) 100 mcg PO DAILYBB KOBY Stop: 11/08/18 07:59 Last Admin: 10/10/18 05:44 Dose: 100 mcg Documented by: Lisinopril (Zestril) 5 mg PO DAILY KOBY Stop: 11/08/18 08:59 Last Admin: 10/10/18 08:00 Dose: 5 mg Documented by: Magnesium Hydroxide (Milk Of Magnesia) 30 ml PO Q12H PRN PRN Reason: Constipation Stop: 11/08/18 06:56 Miscellaneous (Carbohydrates For Hypoglycemia) 15 - 30 gm PO UD PRN PRN Reason: Hypoglycemia Treatment Stop: 11/08/18 07:29 Morphine Sulfate (Morphine Sulfate) 2 mg IV Q30M PRN PRN Reason: Chest Pain Stop: 10/23/18 06:56 Last Admin: 10/09/18 17:20 Dose: 2 mg Documented by: Multivitamins/Minerals (Caltrate Plus) 2 tab PO DAILY KOBY Stop: 11/08/18 08:59 Last Admin: 10/10/18 08:00 Dose: Not Given Documented by: Nitroglycerin (Nitrostat) 0.4 mg SL UD PRN PRN Reason: Chest Pain Stop: 11/08/18 06:56 Ondansetron HCl (Zofran) 4 mg IV Q6H PRN PRN Reason: Nausea Stop: 11/08/18 06:56 Last Admin: 10/09/18 08:21 Dose: 4 mg Documented by: Pantoprazole Sodium (Protonix) 40 mg PO DAILY KOBY Stop: 11/08/18 08:59 Last Admin: 10/10/18 08:04 Dose: Not Given Documented by: Polyethylene Glycol (Miralax Powder Packet) 17 gm PO DAILY PRN PRN Reason: Constipation Stop: 11/08/18 06:56 PG Care Time/CCT Total # of Minutes Spent Total Time Spent with Patient: Total time spent is greater than 50% in coordination of care (as documented) at patient's floor/unit and/or counseling patient: (1) Hypertension Hypertension type: unspecified Qualified Code(s): I10 - Essential (primary) hypertension (2) Chest pain Chest pain type: unspecified Qualified Code(s): R07.9 - Chest pain, unspecified
[2018-10-10 08:46] LABS: Albumin Globulin Ratio 0.9 (0.9-2); Albumin Level 3.6 gm/dl (3.4-5.0); BUN Creatinine Ratio 11.2 (10-20); Bilirubin,Total 0.6 mg/dl (0.2-1); Calcium 9.1 mg/dl (8.5-10.1); Creatinine Clr Calc Pharmacy 67.2 ml/min; Est GFR (African American) 91.9; Est GFR (Non-African American) 79.3; Globulin 3.8 gm/dl (2.5-4.0); Total Protein 7.4 gm/dl (6.4-8.2)
--- NOTE | 2018-10-10 09:07 | Surgery Consultation ---
Date of Consultation October 10, 2018 Assessment & Plan (1) Acute cholecystitis: Will plan for laparoscopic cholecystectomy today by Dr. Hough. as above/pt seen. discussed options/risks of surgery ( bleeding/infection/dvt/pe/mi/cva/bile leaks/injury to other organs etc...) questions answered. will proceed with lap/possible open cholecystectomy today. History of Present Illness Attending Physician: Roman Avilez DO History of Present Illness 73 y/o female admitted yesterday for epigastric/chest pain that began overnight. She has been having less severe symptoms for some time that she attributed to her GERD. She came to the ER when her symptoms persisted for several hours and was concerned given family cardiac history. Cardiac work-up has been negative, U/S and HIDA are consistent with cholecystitis. Allergies Allergy/AdvReac Type Severity Reaction Status Date / Time metformin Allergy Verified 09/28/18 12:29 Home Medications Home Medications Medication Instructions Recorded Confirmed Type levothyroxine 100 mcg tablet 100 mcg PO DAILY #90 tab 09/28/18 10/09/18 History lisinopril 5 mg tablet 5 mg PO DAILY #90 tab 09/28/18 10/09/18 History omeprazole 10 mg capsule,delayed 10 mg PO DAILY #90 cap 09/28/18 10/09/18 History release calcium carbonate-vitamin D3 2 cap PO DAILY 10/09/18 10/09/18 History [Calcium 600 + D(3)] cholecalciferol (vitamin D3) 3,000 unit PO DAILY 10/09/18 10/09/18 History [Vitamin D3] ezetimibe-simvastatin [Vytorin 1 tab PO DAILY 10/09/18 10/09/18 History 10-20] sitagliptin-metformin [Janumet XR] 1 tab PO BID 10/09/18 10/09/18 History Patient History Medical History GERD (gastroesophageal reflux disease) Hypertension Hyperlipidemia Diabetes mellitus H/O: hysterectomy Family History Mother Diabetes Heart failure Cardiomyopathy Grandmother Diabetes Sister Osteoporosis Breast cancer Cardiac disorder Aunt Myocardial infarction Uncle Myocardial infarction Social History Preferred Language: Urdu Communication Ability: Effective Beliefs That Will Affect Care: None marital status: Current Living Situation: Spouse current occupational status: retired Feels Safe at Home: Yes Safety Concerns: Feels Safe At This Time Smoking Status: Never smoker Hx Alcohol Use: Yes Alcohol type: wine Hx Substance Use: No Review of Systems Constitutional: + fever; no anorexia Cardiovascular: + chest pain (per HPI); no chest pain with activity Gastrointestinal: + abdominal pain, + bloating, + heartburn and + nausea; no vomiting Physical Exam Constitutional: WD/WN, vitals as above Respiratory: normal respiratory effort, lungs clear to auscultation Cardiovascular: RRR, no murmur, no edema Gastrointestinal (Abdomen): Inspection/Auscultation: abdomen not distended Percussion/Palpation: + abdomen tender (mild RUQ) and abdomen soft Skin: no rashes, warm and dry Results & Data Vital Signs (Past 12 Hours) Vital Signs Temp Pulse Pulse Resp BP Pulse Ox 10/10/18 07:47 36.7 C 66 20 167/75 H 99 10/10/18 02:38 36.5 C 65 16 136/72 97 10/09/18 23:54 36.4 C L 62 18 157/74 H 97 10/09/18 23:04 59 L PG Care Time/CCT Total # of Minutes Spent Total Time Spent with Patient: Total time spent is greater than 50% in coordination of care (as documented) at patient's floor/unit and/or counseling patient:
[2018-10-10] MEDS: CIPROFLOXACIN 400 MG/200 ML BAG IV SCH ×2 (10:10→22:16)
[2018-10-10] MEDS: SODIUM CHLORIDE 0.9% 1000ML 1,000 ML IV SCH ×2 (11:12→20:05)
[2018-10-10] MEDS ORDERED: ROCURONIUM BROMIDE 10 MG/ML 5 ML VIAL ONE (11:55)
[2018-10-10] MEDS ORDERED: LIDOCAINE HCL 2% 2 ML VIAL/AMP(20MG/ML) INFIL ONE (11:55)
[2018-10-10] MEDS ORDERED: PROPOFOL IV EMULSION 10 MG/ML 20 ML VIAL IV ONE (11:55)
[2018-10-10] MEDS ORDERED: MIDAZOLAM HCL 1 MG/ML 2ML VIAL ONE (11:56)
[2018-10-10] MEDS ORDERED: fentaNYL citrate 100 MCG/2 ML VIAL ONE ×2 (11:56→12:57)
[2018-10-10] MEDS ORDERED: ePHEDrine sulfate 50 MG/ML AMP IV PRN (12:01)
[2018-10-10] MEDS ORDERED: ONDANSETRON INJ 2 MG/ML 2 ML VIAL IV PRN (12:01)
[2018-10-10] MEDS ORDERED: ATROPINE SULFATE 0.1 MG/ML 10ML SYR IV PRN (12:01)
--- NOTE | 2018-10-10 12:01 | Anesthesiology Consultation ---
Date of Service October 10, 2018 htn controlled gerd niddm Assessment & Plan (1) Encounter for pre-operative examination: Chart Review Chart Review: Acceptable Risk for Surgery and Patient NOT seen in Pre Admission Testing Consults Requested none ASA ASA2 Proposed Anesthesia Anesthesia Type: General Risk / Benefits Reviewed With: PT / POA / Parent / Guardian, Accepts Plan and Informed Consent Obtained History Surgery Operation Date: 10/10/18 08:30 Proposed Procedures p Laparoscopic Cholecystectomy - Juan A Hough, DO Height/Weight Height: 5 ft 5 in Weight: 76.4 kg Allergies Allergy/AdvReac Type Severity Reaction Status Date / Time metformin Allergy Verified 09/28/18 12:29 Medications Home Medications Medication Instructions Recorded Confirmed Last Taken levothyroxine 100 mcg tablet 100 mcg PO DAILY #90 tab 09/28/18 10/09/18 Unknown lisinopril 5 mg tablet 5 mg PO DAILY #90 tab 09/28/18 10/09/18 Unknown omeprazole 10 mg capsule,delayed 10 mg PO DAILY #90 cap 09/28/18 10/09/18 Unknown release calcium carbonate-vitamin D3 2 cap PO DAILY 10/09/18 10/09/18 Unknown [Calcium 600 + D(3)] cholecalciferol (vitamin D3) 3,000 unit PO DAILY 10/09/18 10/09/18 Unknown [Vitamin D3] ezetimibe-simvastatin [Vytorin 1 tab PO DAILY 10/09/18 10/09/18 Unknown 10-20] sitagliptin-metformin [Janumet XR] 1 tab PO BID 10/09/18 10/09/18 Unknown Active Medications Generic Name Dose Route Start Last Admin Trade Name Freq PRN Reason Stop Dose Admin Acetaminophen 650 mg 10/09/18 06:57 10/09/18 13:48 Tylenol PO 11/08/18 06:56 650 mg Q4H PRN Administration Pain or Fever Aspirin 81 mg 10/09/18 09:00 10/10/18 08:03 Ecotrin Ectab PO 11/08/18 08:59 Not Given QAM KOBY Enoxaparin Sodium 40 mg 10/09/18 09:00 10/10/18 08:03 Lovenox SQ 11/08/18 08:59 Not Given Q24H KOBY Ezetimibe/Simvastatin 1 tab 10/09/18 09:00 10/10/18 08:04 Vytorin 10/20 Mg PO 11/08/18 08:59 Not Given DAILY KOBY Metronidazole 500 mg in 100 mls @ 100 mls/hr 10/09/18 11:00 10/10/18 11:12 Flagyl IV 10/19/18 10:59 Infused Q8H KOBY Infusion Ciprofloxacin 400 mg in 200 mls @ 100 mls/hr 10/09/18 11:00 10/10/18 10:10 Cipro IV 10/19/18 10:59 100 mls/hr Q12H KOBY Administration Sodium Chloride 1,000 mls @ 80 mls/hr 10/09/18 10:15 10/10/18 11:12 Nss 1000ml IV 11/08/18 10:14 80 mls/hr .[id number] KOBY Administration Insulin Aspart 0 units 10/09/18 07:30 10/10/18 11:15 Novolog Flexpen SC 11/08/18 07:29 Not Given ACHS KOBY Levothyroxine Sodium 100 mcg 10/09/18 08:00 10/10/18 05:44 Synthroid PO 11/08/18 07:59 100 mcg DAILYBB KOBY Administration Lisinopril 5 mg 10/09/18 09:00 10/10/18 08:00 Zestril PO 11/08/18 08:59 5 mg DAILY KOBY Administration Morphine Sulfate 2 mg 10/09/18 06:57 10/09/18 17:20 Morphine Sulfate IV 10/23/18 06:56 2 mg Q30M PRN Administration Chest Pain Multivitamins/Minerals 2 tab 10/09/18 09:00 10/10/18 08:00 Caltrate Plus PO 11/08/18 08:59 Not Given DAILY KOBY Ondansetron HCl 4 mg 10/09/18 06:57 10/09/18 08:21 Zofran IV 11/08/18 06:56 4 mg Q6H PRN Administration Nausea Pantoprazole Sodium 40 mg 10/09/18 09:00 10/10/18 08:04 Protonix PO 11/08/18 08:59 Not Given DAILY KOBY NPO Date Last Intake of Fluids: 10/09/18 Time Last Intake of Fluids: 22:00 Date Last Intake of Solids: 10/09/18 Time Last Intake of Solids: 19:00 Past Medical History Medical History GERD (gastroesophageal reflux disease) Hypertension Hyperlipidemia Diabetes mellitus H/O: hysterectomy Exercise / Class Metabolic Activity II 4-5 Yardwork/Stairs/Walk up hill Past Family History Family History Mother Diabetes Heart failure Cardiomyopathy Grandmother Diabetes Sister Osteoporosis Breast cancer Cardiac disorder Aunt Myocardial infarction Uncle Myocardial infarction Past Anesthesia History No Hx of Anesthesia Complications and No Family Hx of Anesthesia Complications History of PONV No Hx of PONV and No Hx of Motion Sickness Social History Smoking Status: Never smoker Hx Alcohol Use: Yes Alcohol type: wine alcohol intake frequency: other Alcohol Intake Frequency Comment: couple times a year Hx Substance Use: No Physical Exam Vital Signs Last Vital Signs Temp 36.5 C 10/10/18 11:49 Pulse 68 10/10/18 11:49 Resp 20 10/10/18 11:49 BP 170/62 H 10/10/18 11:49 Pulse Ox 95 10/10/18 11:49 ENMT Mouth: no dentition abnormality Thyromental Distance: > or= 3.5 Finger Breadths Mallampati Class: II Neck normal visual inspection Respiratory normal respiratory effort Auscultation: lungs clear to auscultation bilaterally Cardiovascular Rate/Rhythm: regular rate and regular rhythm Psychiatric Orientation: alert Testing Laboratory Results 10/10/18 07:52 10/10/18 09:15 PT 10.3 Seconds (9.0-12.0) 10/09/18 04:08 INR 1.0 (0.9-1.1) 10/09/18 04:08 10/10/18 10/10/18 11:04 05:55 POC Glucose 106 H 124 H
[2018-10-10] MEDS ORDERED: BUPIVACAINE 0.5 % 5 MG/1 ML MPF 30ML VIAL ONE (12:04)
[2018-10-10] MEDS ORDERED: BUPIVACAINE/EPINEPHRINE 0.5% MPF 1:200,000 30 ML VIAL ONE (12:31)
[2018-10-10] MEDS ORDERED: ONDANSETRON INJ 2 MG/ML 2 ML VIAL ONE (12:43)
[2018-10-10] MEDS ORDERED: GLYCOPYRROLATE 0.2 MG/ML VIAL ONE ×2 (12:48)
[2018-10-10] MEDS ORDERED: NEOSTIGMINE METHYLSULFATE 1 MG/ML 10ML VIAL ONE (12:48)
--- NOTE | 2018-10-10 13:43 | Operative Report ---
Post Operative Report Pre & Post Diagnosis Operation Date: 10/10/18 08:30 Pre-Op Diagnosis: Acute cholecystitis Post-Op Diagnosis: Acute cholecystitis Procedure Operation Date: 10/10/18 08:30 Actual Procedures p Laparoscopic Cholecystectomy(Not Applicable) - Juan A Hough DO Surgeon Juan A Hough DO [employer] Supervisor opal Thompson Estimated Blood Loss 25 Findings Consistent with Post-Op Diagnosis Specimens gallbladder Description of Procedure After informed consent was obtained the patient was taken to the operating room and placed in the supine position. After successful intubation the abdomen was sterilely prepped and draped in usual fashion. A periumbilical incision was made with an 11 blade scalpel and carried down through the soft tissue using electrocautery. The anterior rectus fascia was opened using electrocautery and 2 #0 Vicryl stay sutures were placed. The peritoneum was elevated with hemostats and incised under direct vision using Metzenbaum scissors. A finger sweep was performed and a 12 mm Luther trocar was placed. The abdomen was insufflated to 18 mmHg. The laparoscope was inserted and the abdomen was examin ed in 360. No gross abnormalities were identified. A subxiphoid 5 mm port and 2 right upper quadrant 5 mm ports were placed under direct vision. The subxiphoid port would be exchanged later for a 12 mm port. The patient was placed in a reverse Trendelenburg position and slightly airplaned to the left. Initially we were unable to grasp the gallbladder because of its distention. I drained about 20 cc of purulent fluid out of the gallbladder with a gallbladder needle. Next, the gallbladder was grasped and elevated superiorly and laterally. A [place] dissector was used to take down adhesions around the neck of the gallbladder. The cystic artery was initially identified and was rather anterior. I was able to skeletonize this clip it twice proximally and once distally with a clip chief writer. It was then transected. The cystic duct was identified and skeletonized as well. It was a rather short wide duct unable to be entirely clipped with a clip chief writer. I therefore exchanged the subxiphoid port for 12 mm port and used a RASHMI brown cartridge 30 mm stapler to transect the cystic duct. The gallbladder was removed from the gallbladder fossa with electrocautery. It was placed into an Endo Catch bag. Thorough irrigation was performed. At the end of the procedure there was adequate hemostasis and no evidence of any bile leaks. There was a small amount of oozing from fossa which was initially controlled with cautery. I did place a piece of Surgicel in the gallbladder fossa to help assist with clotting. A final look around the abdomen showed no other abnormalities. The gallbladder and trochars were all removed and the abdomen was desufflated. The fascia of the camera port was closed using 0 Vicryl in a [id number] fashion. All the wounds were irrigated and closed using 4-0 Monocryl. Marcaine was injected around them for postoperative analgesia and skin glue used as a dressing. The patient was awakened extubated and transferred to recovery in stable condition. My physician's assistant professor of dietetics was present throughout the entire case... helped with prepping the patient. Helped with exposure for trocar placement, as well as retracted the gallbladder throughout the case and also assisted with wound closure and dressing placement. I attest to the content of the Intraoperative Record and any orders documented therein. Any exceptions are noted below.
[2018-10-10] MEDS: fentaNYL citrate 100 MCG/2 ML VIAL IV PRN ×4 (14:10→14:26)
--- NOTE | 2018-10-10 15:45 | Anesthesiology Progress Note ---
Date of Service October 10, 2018 Anesthesia Post Procedure Vital Signs Vital Signs: Temp Pulse Pulse Pulse Resp BP Pulse Ox 10/10/18 14:51 36.3 C L 55 L 14 151/60 H 94 10/10/18 14:40 36.1 C L 53 L 14 160/65 H 93 10/10/18 14:30 55 L 12 166/74 H 99 10/10/18 14:20 51 L 13 168/60 H 96 10/10/18 14:10 51 L 17 189/72 H 99 10/10/18 14:02 36.0 C L 58 L 17 155/69 H 96 10/10/18 11:49 36.5 C 68 20 170/62 H 95 10/10/18 07:47 36.7 C 66 20 167/75 H 99 10/10/18 02:38 36.5 C 65 16 136/72 97 10/09/18 23:54 36.4 C L 62 18 157/74 H 97 10/09/18 23:04 59 L 10/09/18 19:40 36.4 C L 67 18 116/64 96 Pain Intensity Chest: Pain Intensity: 3 Abdomen: Pain Intensity: 7 Transfer of Care Handoff Completed per policy Notes Mental Status: alert / awake / arousable Patient Amnestic to Procedure: Yes Nausea / Vomiting: adequately controlled Pain: adequately controlled Airway Patency, RR, SpO2: stable & adequate BP & HR: stable & adequate Hydration State: stable & adequate Anesthetic Complications: no major complications apparent
[2018-10-10] MEDS: MoRPHine SULFATE 4 MG/ML 1 ML CARP\\VIAL IV PRN ×2 (17:23→19:53)
[2018-10-11] MEDS: ACETAMINOPHEN 325 MG TAB PO PRN (03:30)
[2018-10-11] MEDS: metroNIDAZOLE 500 MG/100 ML BAG IV SCH (03:30)
[2018-10-11] MEDS: LEVOTHYROXINE SODIUM 100 MCG TABLET PO SCH (05:44)
[2018-10-11] MEDS: CALCIUM 600MG + VIT D 400 IU TAB PO SCH (08:08)
[2018-10-11] MEDS: ENOXAPARIN INJ 40 MG/0.4 ML SYR SQ SCH (08:08)
[2018-10-11] MEDS: ASPIRIN 81 MG ECTAB PO SCH (08:11)
--- NOTE | 2018-10-11 08:53 | Surgery Progress Note ---
Date of Service October 11, 2018 Assessment & Plan (1) Acute cholecystitis: POD 1 lap madonna advance diet seen with Dr. Gianluca de león for d/c Subjective no complaints, on liquids Physical Exam Gastrointestinal (Abdomen): Inspection/Auscultation: + abdominal surgical incision (clean, dry) Percussion/Palpation: abdomen soft Results & Data Vital Signs (Past 12 Hours) Vital Signs Temp Pulse Pulse Resp BP Pulse Ox 10/11/18 07:52 37.0 C 76 16 146/70 H 92 10/11/18 03:40 92 10/11/18 03:39 86 L 10/11/18 03:30 36.7 C 79 16 136/68 91 10/10/18 23:51 93 10/10/18 23:35 36.6 C 76 16 120/70 92 10/10/18 21:00 36.3 C L 75 17 158/70 H 94 PG Care Time/CCT Total # of Minutes Spent Total Time Spent with Patient: Total time spent is greater than 50% in coordination of care (as documented) at patient's floor/unit and/or counseling patient:
[2018-10-11] MEDS: INSULIN ASPART 100 UNITS/ML 3 ML PEN SC SCH (08:54)
--- NOTE | 2018-10-11 09:12 | Discharge Summary ---
Date of Service October 11, 2018 Admission HPI Per Admitting Provider 73 y/o F Hx HTN, HLD, GERD, hypothyroidism, DM II. Presents with central CP which began the prior evening. The pain is pressure-like, nonradiating. She denies nausea, vomiting, diaphoresis. She has had some dyspnea when the pain occurs. Initial labs and EKG do not support acute ischemia. A CTA was obtained due to persistent pain and did not show any acute abnormalities. PMH 1) HTN 2) HLD 3) DM II 4) GERD 5) Hypothyroidism Surgical: Hysterectomy Social: Does not smoke or drink Family: Father in an MVA Mother at age 89 due to an ME Principal Diagnosis Acute cholecystitis Discharge Exam Constitutional WD/WN, vitals as above Eyes PERRL, conjunctivae normal, anicteric sclerae ENMT external ear and nose normal, oropharynx normal Neck trachea midline, no thyromegaly Respiratory normal respiratory effort, lungs clear to auscultation Cardiovascular RRR, no murmur, no edema Gastrointestinal (Abdomen) normal bowel sounds, soft, nontender, no hepatosplenomegaly Musculoskeletal no cyanosis or clubbing, extremities motor strength 5/5 Skin no rashes, warm and dry Neurologic patellar DTR's 2+ bilat, sensation intact and PERRL, EOMI, accommodation nl, no face palsy, no dysarthria Psychiatric A+Ox3, euthymic affect Lymphatic no cervical or axillary lymphadenopathy Discharge Data Allergies Allergy/AdvReac Type Severity Reaction Status Date / Time metformin Allergy Verified 09/28/18 12:29 Consultations 10/09/18 05:06 ED Decision to Admit Stat 10/09/18 21:51 Consult General Surgery Routine Procedures Performed Operation Date: 10/10/18 08:30 Actual Procedures p Laparoscopic Cholecystectomy(Not Applicable) - Juan A Hough, Ordered Studies 10/09/18 05:15 CT angio chest PE protocol Urgent 10/09/18 10:03 US abdomen limited Stat Hospital Course (1) Acute cholecystitis: presented with chest and epigastric pain at rest associated with nausea and vomiting, low grade fever RUQ US with dilated gall bladder, normal CBD, no stones HIDA scan shows obstruction of cystic duct consistent with the acute cholecystitis NPO after midnight on 10/09 treated with Cipro/Flagyl while awaiting surgery s/p lap madonna with Dr. Hough on 10/10, tolerated well okay for discharge today from surgical perspective discharge instructions provided use [place] PRN for pain control follow up with Dr. Hough in two weeks (2) Hypertension: continue on Lisinopril (3) Chest pain: initially had chest pain negative work up for cardiac ischemia CTA chest negative for PE pain was more epigastric in region and was due to cholecystitis (4) GERD (gastroesophageal reflux disease): continue on PPI (5) Diabetes mellitus: type II, normally on Janumet hold oral agents, use Novolog SS monitor for hypoglycemia resume Janumet on discharge Total Time Total Time Spent Total Time Spent (In Minutes): 31 minutes Total Time Includes: Examination of the Patient, Discharge Planning, Medication Reconciliation and Communication With Other Providers (Dr. Hough) Discharge Plan Discharge Items Patient Disposition: Home - Self-Care Reason For Visit: CHEST PAIN Discharge Diagnosis: Acute cholecystitis Condition: Good Discharge Goals: Decrease discomfort and Improve function Activity: Per 'Additional Instructions' section Lifting: No more than 10 pounds Bathing: No limitations Exercise/Sports: Gradually increase as tolerated Driving/Machine Use: Resume 3 days after discharge Non-emergency contact: Surgeon Call non-emergency contact if: you have any medication questions, your symptoms worsen and you have a fever Follow-up/Referrals: Yanelis Ho MD [Primary Care Provider] - 10/11/18 12:00 pm (Please, follow up with Dr. Ho on TuesdayOctober 11 at 12:00 pm. *If you need to change this appointment, call her office at [phone].) Juan A Hough, DO [Surgeon] - (Call to make an appt in 2 weeks) Diet: Low Fat Addtl Provider Instructions: Medications: - NORCO: take as needed for pain Acute cholecystitis, s/p lap cholecystectomy follow instructions for lifting and activity above call to follow up with Dr. Hough in two weeks there is not need to follow up with Dr. Ho since this was surgical issue continue to advance diet as tolerated please note that for the first few weeks excessive fat intake will give you diarrhea avoid greasy, fried foods to prevent diarrhea Prescriptions: New hydrocodone-acetaminophen [[place]] 5-325 mg tablet 1 - 2 tab PO Q4H Qty: 15 RF: 0 Continued lisinopril 5 mg tablet 5 mg PO DAILY Qty: 90 RF: 0 omeprazole 10 mg capsule,delayed release(DR/EC) 10 mg PO DAILY Qty: 90 RF: 0 levothyroxine 100 mcg tablet 100 mcg PO DAILY Qty: 90 RF: 0 ezetimibe-simvastatin [Vytorin 10-20] 10-20 mg Tablet 1 tab PO DAILY RF: 0 cholecalciferol (vitamin D3) [Vitamin D3] 1,000 unit Capsule 3,000 unit PO DAILY RF: 0 Janumet XR 50-1,000 mg tablet, ER multiphase 24 hr 1 tab PO BID RF: 0 Calcium 600 + D(3) 600 mg calcium- 200 unit Capsule 2 cap PO DAILY RF: 0 Stand-Alone Forms: Call Back Authorization, [facility] Discharge Orders: Discharge Order (Routine); Ordered 10/11/18 Ordered By: Roman Avilez Admission Data Admit Date/Time: 10/10/18 09:06 Attending Provider: Roman Avilez Admit Provider: Aries Hood Primary Care Provider: Yanelis Ho Other Providers: Aries Hood ; Austin Galaviz Service: Medical
[2018-10-11] MEDS ORDERED: PNEUMOCOCCAL ADMINISTRATION CHARGE ONE (09:30)
[2018-10-11] MEDS ORDERED: PNEUMOCOCCAL POLYSACCHARIDES 25 MCG/0.5 ML VIAL/SYR IM ONE (09:30)
--- NOTE | 2018-10-11 10:20 | Anesthesiology Progress Note ---
Date of Service October 11, 2018 Anesthesia Post Procedure Vital Signs Vital Signs: Temp Pulse Pulse Resp BP Pulse Ox 10/11/18 09:08 37.0 C 76 79 16 146/70 H 92 10/11/18 07:52 37.0 C 76 16 146/70 H 92 10/11/18 03:40 92 10/11/18 03:39 86 L 10/11/18 03:30 36.7 C 79 16 136/68 91 10/10/18 23:51 93 10/10/18 23:35 36.6 C 76 16 120/70 92 10/10/18 21:00 36.3 C L 75 17 158/70 H 94 10/10/18 18:17 36.3 C L 70 18 169/71 H 97 10/10/18 17:15 36.2 C L 72 18 161/76 H 95 10/10/18 16:13 36.1 C L 65 18 146/73 H 97 10/10/18 15:43 36.3 C L 64 17 155/78 H 96 10/10/18 14:51 36.3 C L 55 L 14 151/60 H 94 10/10/18 14:40 36.1 C L 53 L 14 160/65 H 93 10/10/18 14:30 55 L 12 166/74 H 99 10/10/18 14:20 51 L 13 168/60 H 96 10/10/18 14:10 51 L 17 189/72 H 99 10/10/18 14:02 36.0 C L 58 L 17 155/69 H 96 10/10/18 11:49 36.5 C 68 20 170/62 H 95 Pain Intensity Chest: Pain Intensity: 3 Abdomen: Pain Intensity: 2 Notes Mental Status: alert / awake / arousable and participated in evaluation Nausea / Vomiting: adequately controlled Pain: adequately controlled Airway Patency, RR, SpO2: stable & adequate BP & HR: stable & adequate Hydration State: stable & adequate
== END 2018-10-11 09:49 | disposition home or self-care (01) | DRG 419 ==
LOC: ED 03:18 → 2S 03:18 → SUATTDRO 05:48 → 2S 06:38 → 3N 10-10 15:19